=== PATIENT | female | born 1940 | race Caucasian/White ===

== ENCOUNTER 2021-10-03 09:42 | Observation (INO) ==
[2021-10-03] MEDS ORDERED: ONDANSETRON INJ 2 MG/ML 2 ML VIAL IV STA (10:09)
[2021-10-03] MEDS ORDERED: SODIUM CHLORIDE 0.9% 1000ML 1,000 ML IV STA (10:09)
[2021-10-03 10:16] LABS: Basophils # (auto) 0.02 K/uL (0-0.2); Basophils % (auto) 0.1 %; Eosinophils # (auto) 0.11 K/uL (0-0.5); Eosinophils % (auto) 0.8 %; Hematocrit (blood only) 39.6 % (37-47); Hemoglobin 13.1 g/dL (12.0-16.0); Immature Granulocytes # (auto) 0.03 K/uL (0.00-0.02); Immature Granulocytes % (auto) 0.2 %; Lymphocytes # (auto) 1.43 K/uL (1.2-3.4); Lymphocytes % (auto) 10.7 %; Mean Corpuscular Hemoglobin 30.3 pg (25-34); Mean Corpuscular Hgb Conc 33.1 g/dL (32-36); Mean Corpuscular Volume 91.5 fL (80-100); Mean Platelet Volume 9.9 fL (7.4-10.4); Monocytes # (auto) 0.86 K/uL (0.11-0.59); Monocytes % (auto) 6.4 %; Neutrophils # (auto) 10.91 K/uL (1.4-6.5); Neutrophils % (auto) 81.8 %; Platelet Count 258 K/uL (130-400); RDW Coefficient of Variation 12.9 % (11.5-14.5); RDW Standard Deviation 43.4 fL (36.4-46.3); Red Blood Count 4.33 M/uL (4.2-5.4); White Blood Count 13.36 K/uL (4.8-10.8)
[2021-10-03] MEDS: fentaNYL citrate 100 MCG/2 ML VIAL IV PRN ×2 (10:20→15:05)
[2021-10-03 10:23] LABS: Albumin Level 4.1 gm/dl (3.4-5.0); BUN Creatinine Ratio 12.7 (10-20); Calcium 8.9 mg/dl (8.5-10.1); Creatinine Clr Calc Pharmacy 28.5 ml/min; Est GFR (African American) 41.6 ml/min; Est GFR (Non-African American) 35.9 ml/min; Potassium 3.8 mmol/L (3.5-5.1)
--- NOTE | 2021-10-03 10:23 | Emergency Department Note ---
Impression & Plan Large bowel obstruction, Vomiting, Abdominal pain ED Provider Note NAME: DANNY BASS AGE: 80 SEX: F : 1940 ARRIVES VIA: Ambulance INFORMANT: Patient, ED PROVIDER(S): Jaylan Jacobsen DO CHIEF COMPLAINT: Abdominal pain HPI: The patient is a 80-year-old female who presented to the emergency department for an evaluation of upper abdominal pain and vomiting. The patient was recently diagnosed with C. difficile colitis. She was treated with a course of Flagyl. She has not had diarrhea for 5 days but she is also not had a bowel movement. She started noticing upper abdominal pain abdominal fullness and vomiting. She denies having any fever. She has no black or bloody bowel movements. She has been compliant with her usual outpatient medications. She denies having any recent trauma. The patient states her pain is moderate to severe. The patient has not been seen by her primary care physician for the vomiting. She presented to the emergency department via ambulance. ROS: See above HPI for pertinent positives & negatives. A total of 10 systems reviewed and were otherwise negative. PAST MEDICAL HISTORY: See Below PAST SURGICAL HISTORY: See Below FAMILY HISTORY: See Below SOCIAL HISTORY: See Below HOME MEDICATIONS: See Below ALLERGIES: See Below VITALS: See Below PHYSICAL EXAMINATION: GENERAL: The patient is awake and alert. She is very anxious appearing and appears to be uncomfortable. EYES: The conjunctivae are clear. The pupils are round and reactive. EARS, NOSE, MOUTH AND THROAT: The nose is without any evidence of any deformity. Mucous membranes are moist. Tongue is midline. NECK: The neck is nontender and supple. RESPIRATORY: Normal respiratory effort is noted there is no evidence of wheezing rhonchi or rales CARDIOVASCULAR: Regular rate and rhythm noted there no murmurs rubs or gallops normal S1 normal S2. GASTROINTESTINAL: The abdomen is soft and mildly distended. There is diffuse tenderness to palpation specifically in the upper abdomen. There was no guarding. MUSCULOSKELETAL/EXTREMITIES: There is no evidence of gross deformity full range of motion is noted in the hips and shoulders. SKIN: There is no obvious evidence of any rash. There are no petechiae, pallor or cyanosis noted. NEUROLOGIC: Patient is awake alert and oriented x3. MEDICAL DECISION MAKING: The patient is a 80-year-old female who presented to the emergency department for an evaluation of nausea vomiting. The patient was found to have left-sided abdominal pain on palpation. The patient was treated with IV fluids and IV pain medication as well as IV antiemetics. On reevaluation she was mildly improved. Radiographic studies were obtained and appeared to be consistent with a bowel obstruction. I discussed the patient's condition with the on-call [facility] group. They have agreed to evaluate the patient in the emergency department for further management and disposition. Triage Nursing notes reviewed. Prior medical records reviewed Vital Signs: reviewed and remarkable for elevated blood pressure. Differential diagnosis: Etiologies such as appendicitis, diverticulitis, obstruction, inflammatory bowel disease, renal colic, PUD, biliary pathology, pancreatitis, mesenteric ischemia, aortic pathology, infections, genitourinary, UTI, perforated viscus, as well as others were entertained. ER treatment provided: See below Diagnostics interpreted by me: ECG: none Cardiac Monitoring: An order was placed for continuous cardiac monitoring. The monitor shows a rate of 70 bpm with sinus rhythm. Laboratory studies: As stated above and show below. Imaging studies: See below Consultation(s): I discussed this case with Kathrin who is on-call for the [facility] hospitalist group. They will evaluate the patient in the emergency department for further management and disposition. Past Med/Surg History Medical History (Updated 10/03/21 @ 16:31 by Jaylan Jacobsen DO) Bipolar disorder CAD (coronary artery disease) Depression Diet-controlled diabetes mellitus GERD (gastroesophageal reflux disease) HTN (hypertension) Myocardial infarction Post herpetic neuralgia Presence of stent in LAD coronary artery Surgical History (Updated 10/03/21 @ 15:22 by Kathrin Valladares PA-C) History of carpal tunnel release History of lumbar surgery History of rotator cuff surgery History of trigger finger Hx of coronary angioplasty stent to lad in 2018 Family History (Updated 10/03/21 @ 15:22 by Kathrin Valladares PA-C) Denies family history of Colorectal cancer Social History (Updated 10/03/21 @ 15:23 by Kathrin Valladares PA-C) Smoking Status: Never smoker Hx Alcohol Use: No Hx Substance Use: No marital status: Single Current Living Situation: Alone Current Living Situation Comment: Lives out in [place] Feels Safe at Home: Yes Allergies Allergies Allergy/AdvReac Type Severity Reaction Status Date / Time acetaminophen [From Percocet] Allergy Severe Hallucinati Unverified 10/03/21 10:46 ng aspirin [From Percodan] Allergy Severe Hallucinati Unverified 10/03/21 10:46 ng butorphanol [From Stadol] Allergy Severe Hallucinati Unverified 10/03/21 10:46 ng codeine Allergy Severe Vomiting Unverified 10/03/21 10:46 fluorouracil [From Efudex] Allergy Severe eating Unverified 10/03/21 10:46 away skin meperidine [From Demerol] Allergy Severe Hallucinati Unverified 10/03/21 10:46 ng oxycodone [From Percocet] Allergy Severe Hallucinati Unverified 10/03/21 10:46 ng Penicillins Allergy Severe Unknown Unverified 10/03/21 10:46 morphine Allergy Intermediate Vomiting Unverified 10/03/21 10:46 propoxyphene Allergy Mild Nausea Unverified 10/03/21 10:46 [From Darvocet-N] ticagrelor [From Brilinta] Allergy Mild Dizziness Unverified 10/03/21 10:46 lorazepam Allergy Agitated Unverified 10/03/21 10:46 prochlorperazine Allergy Agitated Unverified 10/03/21 10:46 [From Compazine] Sulfa (Sulfonamide Allergy Rash Unverified 10/03/21 10:46 Antibiotics) Home Meds Home Medications Medication Instructions Recorded Confirmed atorvastatin 40 mg tablet 40 mg PO DAILY 09/28/18 10/03/21 bupropion HCl 150 mg tablet,12 hr 150 mg PO BID 09/28/18 10/03/21 sustained-release clopidogrel 75 mg tablet 75 mg PO DAILY 09/28/18 10/03/21 pregabalin 100 mg capsule (Lyrica) 100 mg PO BID 09/28/18 10/03/21 psyllium husk 0.52 gram capsule 0.52 g PO DAILY 09/28/18 10/03/21 (Metamucil) amlodipine 10 mg tablet 10 mg PO DAILY 10/03/21 10/03/21 carvedilol 25 mg tablet 25 mg PO BID 10/03/21 10/03/21 lansoprazole 30 mg capsule,delayed 30 mg PO DAILY 10/03/21 10/03/21 release ondansetron HCl 8 mg tablet 8 mg PO TID PRN 10/03/21 10/03/21 tramadol 50 mg tablet 50 mg PO TID PRN 10/03/21 10/03/21 Results & Data (ED) Vital Signs Vital Signs - 24 hr 10/03/21 09:51 10/03/21 10:14 10/03/21 11:51 Temperature 36.8 C Temperature Source Oral Pulse Rate 78 Pulse Rate [Apical] 76 Respiratory Rate 18 18 Blood Pressure 207/75 H Blood Pressure [Left Arm] 147/71 H Blood Pressure Mean 119 Blood Pressure Mean [Left Arm] 96 Pulse Oximetry 98 98 98 Oxygen Delivery Method Room Air Room Air Room Air Sepsis Recent Fever Within 48 Hours No Sepsis New/Unexplained Change in Mental Status No Sepsis Action Taken by Nursing No Action Required Home Medications Current Medication List: was personally reviewed by me Laboratory Data Attestation: I reviewed the patient's lab results. Result diagrams: 10/03/21 09:51 10/03/21 09:51 Lab Results 10/03/21 10/03/21 Range/Units 09:51 09:51 WBC 13.36 H (4.8-10.8) K/uL RBC 4.33 (4.2-5.4) M/uL Hgb 13.1 (12.0-16.0) g/dL Hct 39.6 (37-47) % MCV 91.5 (80-100) fL MCH 30.3 (25-34) pg MCHC 33.1 (32-36) g/dL RDW Std Deviation 43.4 (36.4-46.3) fL RDW Coeff of Gloria 12.9 (11.5-14.5) % Plt Count 258 (130-400) K/uL MPV 9.9 (7.4-10.4) fL Immature Gran % (Auto) 0.2 % Neut % (Auto) 81.8 % Lymph % (Auto) 10.7 % [place] % (Auto) 6.4 % Eos % (Auto) 0.8 % Baso % (Auto) 0.1 % Neut # (Auto) 10.91 H (1.4-6.5) K/uL Lymph # (Auto) 1.43 (1.2-3.4) K/uL [place] # (Auto) 0.86 H (0.11-0.59) K/uL Eos # (Auto) 0.11 (0-0.5) K/uL Baso # (Auto) 0.02 (0-0.2) K/uL Immature Gran # (Auto) 0.03 H (0.00-0.02) K/uL Sodium 140 (136-145) mmol/L Potassium 3.8 (3.5-5.1) mmol/L Chloride 108 H (98-107) mmol/L Carbon Dioxide 22 (21-32) mmol/L Anion Gap 10.0 (3-11) BUN 18 (7-18) mg/dl Creatinine 1.40 H (0.6-1.2) mg/dl Est Cr Clr Drug Dosing 28.5 ml/min Est GFR ( Amer) 41.6 ml/min Est GFR (Non-Af Amer) 35.9 ml/min BUN/Creatinine Ratio 12.7 (10-20) Glucose 145 H (70-99) mg/dl Calcium 8.9 (8.5-10.1) mg/dl Total Bilirubin 0.4 (0.2-1) mg/dl AST 21 (15-37) U/L ALT 23 (12-78) U/L Alkaline Phosphatase 94 (45-117) U/L Total Protein 8.8 H (6.4-8.2) gm/dl Albumin 4.1 (3.4-5.0) gm/dl Globulin 4.7 H (2.5-4.0) gm/dl Albumin/Globulin Ratio 0.9 (0.9-2) Lipase 85 (73-393) U/L Administered Medications Discontinued Medications Amlodipine Besylate (Amlodipine Besylate 5 Mg Tab) 10 mg PO NOW ONE Stop: 10/03/21 15:30 Last Admin: 10/03/21 15:56 Dose: 10 mg Documented by: [id number] Fentanyl Citrate (Fentanyl Citrate 100 Mcg/2 Ml Vial) 50 mcg IV Q15M PRN PRN Reason: Pain Stop: 10/17/21 10:08 Last Admin: 10/03/21 15:05 Dose: 50 mcg Documented by: [id number] Admin: 10/03/21 10:20 Dose: 50 mcg Documented by: [id number] Sodium Chloride (Nss 1000ml) 1,000 mls @ 999 mls/hr IV .Q1H1M STA Stop: 10/03/21 11:09 Last Infusion: 10/03/21 11:27 Dose: 0 mls/hr Documented by: [id number] Admin: 10/03/21 10:20 Dose: 999 mls/hr Documented by: [id number] Acetaminophen (Ofirmev) 1,000 mg in 100 mls @ 400 mls/hr IV NOW STA Stop: 10/03/21 13:40 Last Infusion: 10/03/21 14:04 Dose: 0 mls/hr Documented by: [id number] Admin: 10/03/21 13:41 Dose: 400 mls/hr Documented by: [id number] Ioversol (Optiray 320 100ml) 95 ml IV ONCE ONE Stop: 10/03/21 11:22 Last Admin: 10/03/21 11: Dose: 95 ml Documented by: [id number] Labetalol HCl (Labetalol Hcl Iv 5 Mg/Ml 20ml) 5 mg IV NOW STA Stop: 10/03/21 15:14 Last Admin: 10/03/21 15:56 Dose: 5 mg Documented by: [id number] Cosigned by: [id number] Ondansetron HCl (Ondansetron Inj 2 Mg/Ml 2 Ml Vial) 4 mg IV NOW STA Stop: 10/03/21 10:10 Last Admin: 10/03/21 10:20 Dose: 4 mg Documented by: [id number] Imaging Data Radiologist's Impression: Abdomen/Pelvis CT 10/03/21 10:09 CT SCAN OF THE ABDOMEN AND PELVIS WITHOUT IV CONTRAST CLINICAL HISTORY: Generalized abdominal pain. Vomiting. COMPARISON STUDY: No priors. TECHNIQUE: CT scan of the abdomen and pelvis is performed from the lung bases to the proximal femora. Images are reviewed in the axial, sagittal, and coronal planes. IV contrast was not administered for this examination. A dose lowering t echnique was utilized adhering to the principles of ALARA. CT DOSE: 413.34 mGy.cm FINDINGS: Lung bases: The heart is mildly enlarged and without pericardial effusion. The coronary arteries are densely calcified. The lung bases are clear noting mild bibasilar atelectasis. There is a moderate hiatal hernia. Liver: The unenhanced liver is normal in size, contour, and attenuation. There is minimal central intrahepatic biliary ductal dilatation. There are scattered calcified hepatic granulomas. Gallbladder: Surgically absent noting clips in the gallbladder fossa. Spleen: Normal in size and attenuation. Pancreas: Unremarkable. Adrenal glands: Unremarkable. Kidneys: The unenhanced kidneys demonstrate cortical atrophy and are without hydronephrosis. There are no renal calculi identified. There is no evidence of contour deforming renal mass lesion. 2 subcentimeter cortical hypodensities in the right kidney likely represent cysts but are too small for definitive characterization. Abdominal vasculature: The abdominal aorta is normal in course and caliber noting mild to moderate atherosclerotic calcification. Bowel: Moderate fecal retention is noted in the distal colon. There is focal narrowing with mild mucosal hyperemia is suggested in the proximal descending colon on axial image #229. The upstream colon is distended and fluid-filled measuring up to 6.6 The small bowel loops are normal in caliber. There is mild diverticulosis of the distal colon without CT evidence of acute diverticulitis. The appendix is nonvisualized. Peritoneum: There is no intraperitoneal free air or abdominal ascites. Lymphadenopathy: None. Pelvic viscera: The bladder is normal as visualized. The uterus is surgically absent. No adnexal lesion is seen. Skeletal structures: The skeletal structures are osteopenic. There is lumbosacral spondylosis with postlaminectomy change in the lower lumbar spine. Arthritic change is seen in the hips. No lytic or blastic lesions are seen. IMPRESSION: 1. There is an apparent focal narrowing of the proximal descending colon. The upstream colon is distended and fluid-filled, and the distal colon shows significant fecal retention. The appearance suggests a colonic obstruction, possibly at the level of the proximal descending colon. Although no obvious mass lesion is identified, a mass lesion, focal inflammation, or stricture are differential considerations. This focus of narrowing could also potentially be related to peristalsis, and proximal colonic dilatation could be related to distal fecal impaction. Follow-up with colonoscopy is recommended for further evaluation. 2. The small bowel loops are normal in caliber. 3. Moderate hiatal hernia. 4. Additional findings as above. ACT 112: Negative or not required by law. Electronically signed by: John Grullon M.D. 10/03/2021 11:38 AM Chest X-Ray 10/03/21 10:09 SINGLE VIEW CHEST CLINICAL HISTORY: Generalized abdominal pain. FINDINGS: An AP, portable, upright chest radiograph is compared to study dated 09/28/2018. The cardiomediastinal silhouette is unremarkable noting atherosclerotic calcification of the thoracic aorta. There is mild bibasilar a telectasis. The lungs and pleural spaces are otherwise clear. No pneumothorax is seen. The skeletal structures are osteopenic. The bony thorax is grossly intact. Surgical anchors are noted in the right humeral head. IMPRESSION: No active disease in the chest. ACT 112: Negative or not required by law. Electronically signed by: John Grullon M.D. 10/03/2021 10:42 AM Discharge Plan Visit Data Chief Complaint: GI Assessment Stated Complaint: CONSTIPATION, AB PAIN, NAUSEA/VOMITING ED Provider: Jaylan Jacobsen Discharge Problem: Large bowel obstruction, Vomiting, Abdominal pain Patient Disposition: Being Evaluated by Hospitalist
[2021-10-03 10:25] LABS: Albumin Globulin Ratio 0.9 (0.9-2); Bilirubin,Total 0.4 mg/dl (0.2-1); Globulin 4.7 gm/dl (2.5-4.0); Total Protein 8.8 gm/dl (6.4-8.2)
--- NOTE | 2021-10-03 10:43 | XRay Report ---
SINGLE VIEW CHEST CLINICAL HISTORY: Generalized abdominal pain. FINDINGS: An AP, portable, upright chest radiograph is compared to study dated 09/28/2018. The cardio mediastinal silhouette is unremarkable noting atherosclerotic calcification of the thoracic aorta. Th ere is mild bibasilar atelectasis. The lungs and pleural spaces are otherwise clear. No pneumothorax is seen. The skeletal structures are osteopenic. The bony thorax is grossly intact. Surgical anchors are noted in the right humeral head. IMPRESSION: No active disease in the chest. ACT 112: Negative or not required by law. Electronically signed by: John Grullon M.D. 10/03/2021 10:42 AM
[2021-10-03] MEDS ORDERED: OPTIRAY 320 100ml IV ONE (11:21)
--- NOTE | 2021-10-03 11:40 | CT Scan Report ---
CT SCAN OF THE ABDOMEN AND PELVIS WITHOUT IV CONTRAST CLINICAL HISTORY: Generalized abdominal pain. Vomiting. COMPARISON STUDY: No priors. TECHNIQUE: CT scan of the abdomen and pelvis is performed from the lung bases to the proximal femora. Images are reviewed in the axial, sagittal, and coronal planes. IV contrast was not administered for this examination. A dose lowering technique was utilized adhering to the principles of ALARA. CT DOSE: 413.34 mGy.cm FINDINGS: Lung bases: The heart is mildly enlarged and without pericardial effusion. The coronary arteries are densely calcified. The lung bases are clear noting mild bibasilar atelectasis. There is a moderate hi atal hernia. Liver: The unenhanced liver is normal in size, contour, and attenuation. There is minimal central int rahepatic biliary ductal dilatation. There are scattered calcified hepatic granulomas. Gallbladder: Surgically absent noting clips in the gallbladder fossa. Spleen: Normal in size and attenuation. Pancreas: Unremarkable. Adrenal glands: Unremarkable. Kidneys: The unenhanced kidneys demonstrate cortical atrophy and are without hydronephrosis. There ar e no renal calculi identified. There is no evidence of contour deforming renal mass lesion. 2 subcent imeter cortical hypodensities in the right kidney likely represent cysts but are too small for defini tive characterization. Abdominal vasculature: The abdominal aorta is normal in course and caliber noting mild to moderate at herosclerotic calcification. Bowel: Moderate fecal retention is noted in the distal colon. There is focal narrowing with mild muco feng hyperemia is suggested in the proximal descending colon on axial image #229. The upstream colon i s distended and fluid-filled measuring up to 6.6 The small bowel loops are normal in caliber. There i s mild diverticulosis of the distal colon without CT evidence of acute diverticulitis. The appendix i s nonvisualized. Peritoneum: There is no intraperitoneal free air or abdominal ascites. Lymphadenopathy: None. Pelvic viscera: The bladder is normal as visualized. The uterus is surgically absent. No adnexal lesi on is seen. Skeletal structures: The skeletal structures are osteopenic. There is lumbosacral spondylosis with po stlaminectomy change in the lower lumbar spine. Arthritic change is seen in the hips. No lytic or jacklyn stic lesions are seen. IMPRESSION: 1. There is an apparent focal narrowing of the proximal descending colon. The upstream colon is diste nded and fluid-filled, and the distal colon shows significant fecal retention. The appearance suggest s a colonic obstruction, possibly at the level of the proximal descending colon. Although no obvious mass lesion is identified, a mass lesion, focal inflammation, or stricture are differential considera tions. This focus of narrowing could also potentially be related to peristalsis, and proximal colonic dilatation could be related to distal fecal impaction. Follow-up with colonoscopy is recommended for further evaluation. 2. The small bowel loops are normal in caliber. 3. Moderate hiatal hernia. 4. Additional findings as above. ACT 112: Negative or not required by law. Electronically signed by: John Grullon M.D. 10/03/2021 11:38 AM
[2021-10-03] MEDS ORDERED: ACETAMINOPHEN 1,000 MG/100 ML VIAL IV STA (13:26)
[2021-10-03 13:29] LABS: Appearance Urine Clear (Clear); Bacteria Urine Automated Negative (Negative); Bilirubin Urine Negative (Negative); Blood Urine Negative (Negative); Color Urine Yellow; Epithelial Cell Urine Auto >30 /lpf (0-5); Glucose Urine UA Negative (Negative); Ketones Urine Negative (Negative); Leukocyte Esterase Urine Trace (Negative); Nitrite Urine Negative (Negative); Protein Urine Negative (Negative); RBC Urine Automated 0-4 /hpf (0-4); Specific Gravity Urine 1.035 (1.000-1.030); Urobilinogen Urine Negative (Negative); pH Urine 6.5 (4.5-7.5)
--- NOTE | 2021-10-03 13:48 | Surgery Consultation ---
Date of Consultation October 03, 2021 Assessment & Plan (1) Colon obstruction: This is a 80yF with a PMH of [place], LAD stent 2018 on plavix, GERD, HTN, & recent history of cdiff 1.5 months ago who presents to the [facility] ED on 10/03/21 with complaints of nausea and abdominal pain. Workup in the ER included a CT a/p that revealed "an apparent focal narrowing of the proximal descending colon. The upstream colon is distended and fluid-filled, and the distal colon shows significant fecal retention. The appearance suggests a colonic obstruction, possibly at the level of the proximal descending colon. Although no obvious mass lesion is identified, a mass lesion, focal inflammation, or stricture are differential considerations. This focus of narrowing could also potentially be related to peristalsis, and proximal colonic dilatation could be related to distal fecal impaction." WBC 13. Patient is afebrile and hypertensive in the ER. On examination patient's abdomen is softly distended with discomfort to palpation in the bilateral lower abdomen. Unclear what the etiology of obstruction is from. For now we would recommend starting IV abx for concern of stercoral colitis. Although colonoscopy 1 year ago, would consult GI to see if patient may benefit from a sigmoidoscopy for further evaluation vs administering enema's for stool burden. Okay with clear liquids from our standpoint, back down to NPO for any possible procedures or if patient develops worsening nausea/vomiting. Would hold plavix for now for any possible procedures. We will continue to follow, but no plans for surgical intervention at this time and will await GI's input. History of Present Illness History of Present Illness This is a 80yF with a PMH of [place], LAD stent 2018 on plavix, GERD, HTN who presents to the [facility] ED on 10/03/21 with complaints of nausea and abdominal pain. Patient reports a recent history of cdiff where she was hospitalized for 4 days in early August. She was discharged and completed a course of flagyl at home. She says she never really felt right since then. She thought she was beginning to feel better a week ago last Tuesday, but developed nausea into Tue/Tuesday. She came to visit her daughter starting Tuesday when the nausea returned in addition to new abdominal pain starting yesterday. Her abdominal pain is located mostly in lower abdomen, rating it a 7/10 in severity. She reported to the ER today due to ongoing symptoms. She says she did have two episodes of a very tiny amount of emesis. A CT a/p was performed in the ER that revealed "an apparent focal narrowing of the proximal descending colon. The upstream colon is distended and fluid-filled, and the distal colon shows significant fecal retention. The appearance suggests a colonic obstruction, possibly at the level of the proximal descending colon. Although no obvious mass lesion is identified, a mass lesion, focal inflammation, or stricture are differential considerations. This focus of narrowing could also potentially be related to peristalsis, and proximal colonic dilatation could be related to distal fecal impaction." Outside of the cdiff she reports a baseline of chronic constipation where she takes daily miralax and metamucil. Her last BM was Tuesday and she says it was normal. Her normal bowel habits are usually once daily. She last ate some raw veggies/dip and chocolate pudding pie yesterday. Her belly pain is not related to eating and has no inciting factors. She reports her last colonoscopy was [address] Parekh with [facility] and says it was normal. When asked about if she ever had diverticulitis she says she thinks she may have had an episode of it before years ago, but was not hospitalized for it. No history of inflammatory bowel disease. Past abdominal surgical history includes a hysterectomy and open cholecystectomy. Allergies Allergy/AdvReac Type Severity Reaction Status Date / Time acetaminophen [From Percocet] Allergy Severe Hallucinati Unverified 10/03/21 10:46 ng aspirin [From Percodan] Allergy Severe Hallucinati Unverified 10/03/21 10:46 ng butorphanol [From Stadol] Allergy Severe Hallucinati Unverified 10/03/21 10:46 ng codeine Allergy Severe Vomiting Unverified 10/03/21 10:46 fluorouracil [From Efudex] Allergy Severe eating Unverified 10/03/21 10:46 away skin meperidine [From Demerol] Allergy Severe Hallucinati Unverified 10/03/21 10:46 ng oxycodone [From Percocet] Allergy Severe Hallucinati Unverified 10/03/21 10:46 ng Penicillins Allergy Severe Unknown Unverified 10/03/21 10:46 morphine Allergy Intermediate Vomiting Unverified 10/03/21 10:46 propoxyphene Allergy Mild Nausea Unverified 10/03/21 10:46 [From Darvocet-N] ticagrelor [From Brilinta] Allergy Mild Dizziness Unverified 10/03/21 10:46 lorazepam Allergy Agitated Unverified 10/03/21 10:46 prochlorperazine Allergy Agitated Unverified 10/03/21 10:46 [From Compazine] Sulfa (Sulfonamide Allergy Rash Unverified 10/03/21 10:46 Antibiotics) Home Medications Medication Instructions Recorded Confirmed Type atorvastatin 40 mg tablet 40 mg PO DAILY 09/28/18 10/03/21 History bupropion HCl 150 mg tablet,12 hr 150 mg PO BID 09/28/18 10/03/21 History sustained-release clopidogrel 75 mg tablet 75 mg PO DAILY 09/28/18 10/03/21 History pregabalin 100 mg capsule (Lyrica) 100 mg PO BID 09/28/18 10/03/21 History psyllium husk 0.52 gram capsule 0.52 g PO DAILY 09/28/18 10/03/21 History (Metamucil) amlodipine 10 mg tablet 10 mg PO DAILY 10/03/21 10/03/21 History carvedilol 25 mg tablet 25 mg PO BID 10/03/21 10/03/21 History lansoprazole 30 mg capsule,delayed 30 mg PO DAILY 10/03/21 10/03/21 History release ondansetron HCl 8 mg tablet 8 mg PO TID PRN 10/03/21 10/03/21 History tramadol 50 mg tablet 50 mg PO TID PRN 10/03/21 10/03/21 History Patient History Medical History (Updated 10/04/21 @ 09:57 by Abram Márquez, DO) Bipolar disorder CAD (coronary artery disease) Depression Diet-controlled diabetes mellitus GERD (gastroesophageal reflux disease) HTN (hypertension) Myocardial infarction Post herpetic neuralgia Presence of stent in LAD coronary artery Surgical History (Updated 10/03/21 @ 15:22 by Kathrin Valladares PA-C) History of carpal tunnel release History of lumbar surgery History of rotator cuff surgery History of trigger finger Hx of coronary angioplasty stent to lad in 2018 Family History (Updated 10/03/21 @ 15:22 by Kathrin Valladares PA-C) Denies family history of Colorectal cancer Social History (Updated 10/03/21 @ 15:23 by Kathrin Valladares PA-C) Smoking Status: Never smoker Hx Alcohol Use: No Hx Substance Use: No Preferred Language: Bolivian Communication Ability: Effective Agronomy Supervisor Required: No Beliefs That Will Affect Care: None marital status: Single Current Living Situation: Alone Current Living Situation Comment: [place] Feels Safe at Home: Yes Review of Systems Constitutional: no fever and no chills Respiratory: no dyspnea Cardiovascular: no chest pain Gastrointestinal: + abdominal pain, + bloating, + nausea, + vomiting and + constipation; no blood in stools Musculoskeletal: reports a stabbing pain in back that comes and goes- she believes is shingles Physical Exam Physical Exam: awake/alert Respiratory: normal respiratory effort Gastrointestinal (Abdomen): Inspection/Auscultation: + abdomen distended and + abdominal surgical scar (midline surgical scar and open walter scar) Percussion/Palpation: + abdomen tender (discomfort to palpation in lower abdomen) and abdomen soft; no guarding Musculoskeletal: midline scar on back from prior spine surgery. no obvious rashes seen on skin Results & Data ([facility]) Vital Signs (Past 12 Hours) Vital Signs Temp Pulse Pulse Resp BP BP Pulse Ox 10/03/21 13:00 86 18 175/109 H 97 10/03/21 11:51 76 18 147/71 H 98 10/03/21 10:14 98 10/03/21 09:51 36.8 C 78 18 207/[address] SCAN OF THE ABDOMEN AND PELVIS WITHOUT IV CONTRAST CLINICAL HISTORY: Generalized abdominal pain. Vomiting. COMPARISON STUDY: No priors. TECHNIQUE: CT scan of the abdomen and pelvis is performed from the lung bases to the proximal femora. Images are reviewed in the axial, sagittal, and coronal planes. IV contrast was not administered for this examination. A dose lowering technique was utilized adhering to the principles of ALARA. CT DOSE: 413.34 mGy.cm FINDINGS: Lung bases: The heart is mildly enlarged and without pericardial effusion. The coronary arteries are densely calcified. The lung bases are clear noting mild bibasilar atelectasis. There is a moderate hiatal hernia. Liver: The unenhanced liver is normal in size, contour, and attenuation. There is minimal central intrahepatic biliary ductal dilatation. There are scattered calcified hepatic granulomas. Gallbladder: Surgically absent noting clips in the gallbladder fossa. Spleen: Normal in size and attenuation. Pancreas: Unremarkable. Adrenal glands: Unremarkable. Kidneys: The unenhanced kidneys demonstrate cortical atrophy and are without hydronephrosis. There are no renal calculi identified. There is no evidence of contour deforming renal mass lesion. 2 subcentimeter cortical hypodensities in the right kidney likely represent cysts but are too small for definitive characterization. Abdominal vasculature: The abdominal aorta is normal in course and caliber noting mild to moderate atherosclerotic calcification. Bowel: Moderate fecal retention is noted in the distal colon. There is focal narrowing with mild mucosal hyperemia is suggested in the proximal descending colon on axial image #229. The upstream colon is distended and fluid-filled measuring up to 6.6 The small bowel loops are normal in caliber. There is mild diverticulosis of the distal colon without CT evidence of acute diverticulitis. The appendix is nonvisualized. Peritoneum: There is no intraperitoneal free air or abdominal ascites. Lymphadenopathy: None. Pelvic viscera: The bladder is normal as visualized. The uterus is surgically absent. No adnexal lesion is seen. Skeletal structures: The skeletal structures are osteopenic. There is lumbosacral spondylosis with postlaminectomy change in the lower lumbar spine. Arthritic change is seen in the hips. No lytic or blastic lesions are seen. IMPRESSION: 1. There is an apparent focal narrowing of the proximal descending colon. The upstream colon is distended and fluid-filled, and the distal colon shows significant fecal retention. The appearance suggests a colonic obstruction, possibly at the level of the proximal descending colon. Although no obvious mass lesion is identified, a mass lesion, focal inflammation, or stricture are differential considerations. This focus of narrowing could also potentially be related to peristalsis, and proximal colonic dilatation could be related to distal fecal impaction. Follow-up with colonoscopy is recommended for further evaluation. 2. The small bowel loops are normal in caliber. 3. Moderate hiatal hernia. 4. Additional findings as above. ACT 112: Negative or not required by law. Electronically signed by: John Grullon M.D. 10/03/2021 11:38 AM PG Care Time/CCT Total # of Minutes Spent Total Time Spent with Patient: Total time spent is greater than 50% in coordination of care (as documented) at patient's floor/unit and/or counseling patient: Coding Level of Care Code 68470 Initial Inpt Care Lvl 3 Diagnoses Colon obstruction K56.609
[2021-10-03] MEDS ORDERED: LABETALOL HCL IV 5 MG/ML 20ML IV STA (15:13)
[2021-10-03] MEDS ORDERED: amLODIPine BESYLATE 5 MG TAB PO ONE (15:29)
--- NOTE | 2021-10-03 15:33 | History & Physical Report ---
Date of Service October 03, 2021 Assessment & Plan (1) Colon obstruction: (2) Nausea: (3) CAD (coronary artery disease): (4) HTN (hypertension): (5) Diet-controlled diabetes mellitus: (6) Post herpetic neuralgia: (7) Bipolar disorder: Plan: This is a 80-year-old female who has significant past medical history of CAD with history of angioplasty in 2018, diet-controlled T2DM, chronic postherpetic neuralgia, HTN, depression, GERD, bipolar disorder who presents to ED secondary to nausea and abdominal pain x2 days. CT a/p: here is an apparent focal narrowing of the proximal descending colon. The upstream colon is distended and fluid-filled, and the distal colon shows significant fecal retention. The appearance suggests a colonic obstruction, possibly at the level of the proximal descending colon. Although no obvious mass lesion is identified, a mass lesion, focal inflammation, or stricture are differential considerations. This focus of narrowing could also potentially be related to peristalsis, and proximal colonic dilatation could be related to distal fecal impaction. Follow-up with colonoscopy is recommended for further evaluation. WBC 13k, no signs of sirs/sepsis Colon Obstruction admit to med tele consult surgery - appreciate their recommendations clear liquid diet for now, NPO after midnight in event pt needs procedure consult gastroenterology to determine if they feel flex sig warranted vs enemas IV cipro and oral flagyl due to concern for possible stercoral coliits last c scope - 1 year ago per pt w/o abd finding IVF LR @ 100cc/hr antiemetics oral tramadol, or IV apap for pain - pt with multiple allergies CAD hx of stent 2018 on plavix, statin, coreg hold tomorrow a.m. plavix for now until seen by GI resume as soon as able HTN bp significantly elevated in ED, likely 2/2 to pain, missing meds continue amlodipine and coreg give labetalol 5mg IV x 1 now and amlodipine 10mg x 1 will monitor on tele due to elevated BP Diet controlled T2DM obtain a1c in am accuchecks ac/hs will not place on coverage Post herpetic neuralgia continue lyrica, prn ice Bipolar d/o Depression continue wellbutrin Dispo: med tele, likely to remain admitted 1-2 days FULL CODE PCP: Josh Cali - from out of area, will consult HIM to obtain records Pt was seen and examined in collaboration with Dr. Kc, please see addendum History of Present Illness Chief Complaint: Nausea and abdominal pain x 2 days Primary Care Provider: Josh Cali PA-C This is a 80-year-old female who has significant past medical history of CAD with history of angioplasty in 2018, diet-controlled T2DM, chronic postherpetic neuralgia, HTN, depression, GERD, bipolar disorder who presents to ED secondary to nausea and abdominal pain x2 days. She is from [place], [place] and is in town visiting her daughter for the holiday. Yesterday she complained of being nauseated and unable to eat and drink much. She did have 1 episode of vomiting described as, "spit up." She also complains of intermittent lower abdominal discomfort, waxes and wanes, currently 5 out of 10, nothing makes better or worse, has never had in the past. Her last bowel movement was 4 days ago. Her last colonoscopy was 1 year ago. She reports a colonoscopy unremarkable and no prior history of abnormal colonoscopies. Of significance she does admit to being hospitalized in August out in [place] secondary to abdominal pain and diagnosed with C. difficile colitis. She was treated with Flagyl x22 days. In ED she remained hemodynamically stable although was significantly hypertensive. CT abdomen pelvis was obtained which revealed apparent focal narrowing of the proximal descending colon. The upstream colon is distended and fluid-filled, and the distal colon shows significant fecal retention. The appearance suggest a colonic obstruction, possibly at the level of the proximal descending colon. Although no obvious mass lesions identified, a mass lesion, focal inflammation or stricture differential considerations. Daughter is at bedside. She is extremely concerned due to mother's prior history and wishes patient to have her care out in [place] where, "they are familiar with her." Allergies Allergy/AdvReac Type Severity Reaction Status Date / Time acetaminophen [From Percocet] Allergy Severe Hallucinati Unverified 10/03/21 10:46 ng aspirin [From Percodan] Allergy Severe Hallucinati Unverified 10/03/21 10:46 ng butorphanol [From Stadol] Allergy Severe Hallucinati Unverified 10/03/21 10:46 ng codeine Allergy Severe Vomiting Unverified 10/03/21 10:46 fluorouracil [From Efudex] Allergy Severe eating Unverified 10/03/21 10:46 away skin meperidine [From Demerol] Allergy Severe Hallucinati Unverified 10/03/21 10:46 ng oxycodone [From Percocet] Allergy Severe Hallucinati Unverified 10/03/21 10:46 ng Penicillins Allergy Severe Unknown Unverified 10/03/21 10:46 morphine Allergy Intermediate Vomiting Unverified 10/03/21 10:46 propoxyphene Allergy Mild Nausea Unverified 10/03/21 10:46 [From Darvocet-N] ticagrelor [From Brilinta] Allergy Mild Dizziness Unverified 10/03/21 10:46 lorazepam Allergy Agitated Unverified 10/03/21 10:46 prochlorperazine Allergy Agitated Unverified 10/03/21 10:46 [From Compazine] Sulfa (Sulfonamide Allergy Rash Unverified 10/03/21 10:46 Antibiotics) Home Medications Medication Instructions Recorded Confirmed Type atorvastatin 40 mg tablet 40 mg PO DAILY 09/28/18 10/03/21 History bupropion HCl 150 mg tablet,12 hr 150 mg PO BID 09/28/18 10/03/21 History sustained-release clopidogrel 75 mg tablet 75 mg PO DAILY 09/28/18 10/03/21 History pregabalin 100 mg capsule (Lyrica) 100 mg PO BID 09/28/18 10/03/21 History psyllium husk 0.52 gram capsule 0.52 g PO DAILY 09/28/18 10/03/21 History (Metamucil) amlodipine 10 mg tablet 10 mg PO DAILY 10/03/21 10/03/21 History carvedilol 25 mg tablet 25 mg PO BID 10/03/21 10/03/21 History lansoprazole 30 mg capsule,delayed 30 mg PO DAILY 10/03/21 10/03/21 History release ondansetron HCl 8 mg tablet 8 mg PO TID PRN 10/03/21 10/03/21 History tramadol 50 mg tablet 50 mg PO TID PRN 10/03/21 10/03/21 History Past Med/Surg History Medical History (Updated 10/03/21 @ 16:31 by Jaylan Jacobsen DO) Bipolar disorder CAD (coronary artery disease) Depression Diet-controlled diabetes mellitus GERD (gastroesophageal reflux disease) HTN (hypertension) Myocardial infarction Post herpetic neuralgia Presence of stent in LAD coronary artery Surgical History (Updated 10/03/21 @ 15:22 by Kathrin Valladares PA-C) History of carpal tunnel release History of lumbar surgery History of rotator cuff surgery History of trigger finger Hx of coronary angioplasty stent to lad in 2018 Family History (Updated 10/03/21 @ 15:22 by Kathrin Valladares PA-C) Denies family history of Colorectal cancer Social History (Updated 10/03/21 @ 15:23 by Kathrin Valladares PA-C) Smoking Status: Never smoker Hx Alcohol Use: No Hx Substance Use: No marital status: Single Current Living Situation: Alone Current Living Situation Comment: Lives out in [place], [place] Feels Safe at Home: Yes Review of Systems Review of Systems: All systems reviewed & are unremarkable except as noted in HPI & below Physical Exam Physical Exam: Constitutional: WD/WN, vitals as above, NAD, sitting up in bed, pleasant, conversing easily, appears anxious, moving around frequently in bed, complaining of left-sided lower back pain due to postherpetic neuralgia Head: Normocephalic, Atraumatic Eyes: PERRL, conjunctivae normal, anicteric sclerae ENMT: external ear and nose normal, oropharynx normal dry mucous membranes Neck: trachea midline, no thyromegaly normal visual inspection Respiratory: normal respiratory effort, lungs clear to auscultation, no wheeze, rales, rhonchi. Normal insp/exp effort, no accessory muscle use Cardiovascular: RRR, no murmur, no edema Vessels: no JVD or carotid bruit Chest: normal inspection of chest Abdomen: normal bowel sounds, soft, nontender, no hepatosplenomegaly Musculoskeletal: no cyanosis or clubbing, extremities motor strength 5/5 Skin: no rashes, warm and dry normal turgor Neurologic: PERRL, EOMI, accommodation nl, no face palsy, no dysarthria CN's II-XI intact bilaterally and moves all extremities Psychiatric: A+Ox3, euthymic affect Lymphatic: no cervical or axillary lymphadenopathy : deferred Results & Data Results & Data ([facility]) Vital Signs (Past 12 Hours) Vital Signs Temp Pulse Pulse Resp BP BP Pulse Ox 10/03/21 15:00 78 18 198/89 H 97 10/03/21 13:00 86 18 175/109 H 97 10/03/21 11:51 76 18 147/71 H 98 10/03/21 10:14 98 10/03/21 09:51 36.8 C 78 18 207/75 H 98 Diagnostic Findings Abdomen/Pelvis CT 10/03/21 10:09 CT SCAN OF THE ABDOMEN AND PELVIS WITHOUT IV CONTRAST CLINICAL HISTORY: Generalized abdominal pain. Vomiting. COMPARISON STUDY: No priors. TECHNIQUE: CT scan of the abdomen and pelvis is performed from the lung bases to the proximal femora. Images are reviewed in the axial, sagittal, and coronal planes. IV contrast was not administered for this examination. A dose lowering technique was utilized adhering to the principles of ALARA. CT DOSE: 413.34 mGy.cm FINDINGS: Lung bases: The heart is mildly enlarged and without pericardial effusion. The coronary arteries are densely calcified. The lung bases are clear noting mild bibasilar atelectasis. There is a moderate hiatal hernia. Liver: The unenhanced liver is normal in size, contour, and attenuation. There is minimal central intrahepatic biliary ductal dilatation. There are scattered calcified hepatic granulomas. Gallbladder: Surgically absent noting clips in the gallbladder fossa. Spleen: Normal in size and attenuation. Pancreas: Unremarkable. Adrenal glands: Unremarkable. Kidneys: The unenhanced kidneys demonstrate cortical atrophy and are without hydronephrosis. There are no renal calculi identified. There is no evidence of contour deforming renal mass lesion. 2 subcentimeter cortical hypodensities in the right kidney likely represent cysts but are too small for definitive characterization. Abdominal vasculature: The abdominal aorta is normal in course and caliber noting mild to moderate atherosclerotic calcification. Bowel: Moderate fecal retention is noted in the distal colon. There is focal narrowing with mild mucosal hyperemia is suggested in the proximal descending colon on axial image #229. The upstream colon is distended and fluid-filled measuring up to 6.6 The small bowel loops are normal in caliber. There is mild diverticulosis of the distal colon without CT evidence of acute diverticulitis. The appendix is nonvisualized. Peritoneum: There is no intraperitoneal free air or abdominal ascites. Lymphadenopathy: None. Pelvic viscera: The bladder is normal as visualized. The uterus is surgically absent. No adnexal lesion is seen. Skeletal structures: The skeletal structures are osteopenic. There is lumbosacral spondylosis with postlaminectomy change in the lower lumbar spine. Arthritic change is seen in the hips. No lytic or blastic lesions are seen. IMPRESSION: 1. There is an apparent focal narrowing of the proximal descending colon. The upstream colon is distended and fluid-filled, and the distal colon shows significant fecal retention. The appearance suggests a colonic obstruction, possibly at the level of the proximal descending colon. Although no obvious mass lesion is identified, a mass lesion, focal inflammation, or stricture are differential considerations. This focus of narrowing could also potentially be related to peristalsis, and proximal colonic dilatation could be related to distal fecal impaction. Follow-up with colonoscopy is recommended for further evaluation. 2. The small bowel loops are normal in caliber. 3. Moderate hiatal hernia. 4. Additional findings as above. ACT 112: Negative or not required by law. Electronically signed by: John Grullon M.D. 10/03/2021 11:38 AM Chest X-Ray 10/03/21 10:09 SINGLE VIEW CHEST CLINICAL HISTORY: Generalized abdominal pain. FINDINGS: An AP, portable, upright chest radiograph is compared to study dated 09/28/2018. The cardiomediastinal silhouette is unremarkable noting atherosclerotic calcification of the thoracic aorta. There is mild bibasilar atelectasis. The lungs and pleural spaces are otherwise clear. No pneumothorax is seen. The skeletal structures are osteopenic. The bony thorax is grossly intact. Surgical anchors are noted in the right humeral head. IMPRESSION: No active disease in the chest. ACT 112: Negative or not required by law. Electronically signed by: John Grullon M.D. 10/03/2021 10:42 AM Medications Administered Medication List Fentanyl Citrate (Fentanyl Citrate 100 Mcg/2 Ml Vial) 50 mcg IV Q15M PRN PRN Reason: Pain Stop: 10/17/21 10:08 Last Admin: 10/03/21 15:05 Dose: 50 mcg Documented by: [id number] Admin: 10/03/21 10:20 Dose: 50 mcg Documented by: [id number] Discontinued Medications Sodium Chloride (Nss 1000ml) 1,000 mls @ 999 mls/hr IV .Q1H1M STA Stop: 10/03/21 11:09 Last Infusion: 10/03/21 11: Dose: 0 mls/hr Documented by: [id number] Admin: 10/03/21 10:20 Dose: 999 mls/hr Documented by: [id number] Acetaminophen (Ofirmev) 1,000 mg in 100 mls @ 400 mls/hr IV NOW STA Stop: 10/03/21 13:40 Last Infusion: 10/03/21 14:04 Dose: 0 mls/hr Documented by: [id number] Admin: 10/03/21 13:41 Dose: 400 mls/hr Documented by: [id number] Ioversol (Optiray 320 100ml) 95 ml IV ONCE ONE Stop: 10/03/21 11:22 Last Admin: 10/03/21 11:21 Dose: 95 ml Documented by: [id number] Ondansetron HCl (Ondansetron Inj 2 Mg/Ml 2 Ml Vial) 4 mg IV NOW STA Stop: 10/03/21 10:10 Last Admin: 10/03/21 10:20 Dose: 4 mg Documented by: [id number] COVID-19 Results Results COVID-19 Adm Lab Results: RBC 4.33 M/uL (4.2-5.4) 10/03/21 WBC 13.36 K/uL (4.8-10.8) H 10/03/21 Hgb 13.1 g/dL (12.0-16.0) 10/03/21 Hct 39.6 % (37-47) 10/03/21 Plt Count 258 K/uL (130-400) 10/03/21 Neutrophils (%) (Auto) 81.8 % 10/03/21 Lymphocytes (%) (Auto) 10.7 % 10/03/21 Monocytes # (Auto) 0.86 K/uL (0.11-0.59) H 10/03/21 Eosinophils # (Auto) 0.11 K/uL (0-0.5) 10/03/21 Immature Granulocyte % (Auto) 0.2 % 10/03/21 Neutrophils # (Auto) 10.91 K/uL (1.4-6.5) H 10/03/21 Lymphocytes # (Auto) 1.43 K/uL (1.2-3.4) 10/03/21 Monocytes # (Auto) 0.86 K/uL (0.11-0.59) H 10/03/21 Eosinophils # (Auto) 0.11 K/uL (0-0.5) 10/03/21 Basophils # (Auto) 0.02 K/uL (0-0.2) 10/03/21 Immature Granulocyte # (Auto) 0.03 K/uL (0.00-0.02) H 10/03/21 Na 140 mmol/L (136-145) 10/03/21 K 3.8 mmol/L (3.5-5.1) 10/03/21 Cl 108 mmol/L (98-107) H 10/03/21 CO2 22 mmol/L (21-32) 10/03/21 Anion Gap 10.0 (3-11) 10/03/21 BUN 18 mg/dl (7-18) 10/03/21 Creatinine 1.40 mg/dl (0.6-1.2) H 10/03/21 BUN/Creatinine Ratio 12.7 (10-20) 10/03/21 Glucose Level 145 mg/dl (70-99) H 10/03/21 Ca 8.9 mg/dl (8.5-10.1) 10/03/21 Total Bilirubin 0.4 mg/dl (0.2-1) 10/03/21 AST/SGOT 21 U/L (15-37) 10/03/21 ALT/SGPT 23 U/L (12-78) 10/03/21 Alkaline Phosphatase 94 U/L (45-117) 10/03/21 Total Protein 8.8 gm/dl (6.4-8.2) H 10/03/21 Albumin 4.1 gm/dl (3.4-5.0) 10/03/21 Globulin 4.7 gm/dl (2.5-4.0) H 10/03/21 Albumin/Globulin Ratio 0.9 (0.9-2) 10/03/21 SARS-CoV-2, RNA, NAAT NEGATIVE (NEGATIVE) 10/03/21 Chest X-Ray 10/03/21 Code Status & VTE Plan Code Status FULL CODE VTE Prophylaxis Plan VTE Prophylaxis will be ordered: Yes Supervising Physician Co-Signing Physician Notes Attending addendum: The patient was seen and examined in the emergency room She has been complaining of abdominal discomfort with nausea since beginning of August and she was in the hospital at [place] for about 4 days with this problem. She was not totally free of symptoms since then. She has history of constipation and takes laxatives regularly. She has had colonoscopy about 1 year ago and there was unremarkable as per her. She has been complaining of abdominal discomfort with distention and nausea for the last 2 to 3 days and she has had her last bowel movement on Tuesday last. She was brought in with abdominal distention, nausea but denies any fever and no chills, no shortness of breath or palpitation. She was noted to have colonic obstruction on CAT scan with distal colonic distention with stool. On examination Denies any significant pain during examination but has some abdominal distention and discomfort Blood pressure is minimally elevated otherwise hemodynamically stable Chestclear to auscultate bilaterally HeartS1-S2 Abdomendistended, firm, tender to palpate with decreasing bowel sound Extremitiesno edema CNSalert, awake and oriented x3 Her admission labs, EKG and imaging studies reviewed Has colonic obstruction with other medical condition as mentioned in H&P GI and surgery have been consulted Agree with assessment and plan as outlined above by Kathrin Kc
[2021-10-03] MEDS ORDERED: GLUCOSE 40% GEL 15 GM TUBE PO PRN (16:18)
[2021-10-03] MEDS ORDERED: ACETAMINOPHEN 1,000 MG/100 ML VIAL IV PRN (16:18)
[2021-10-03] MEDS ORDERED: GLUCAGON FOR INJ 1 MG VIAL SQ PRN (16:18)
[2021-10-03] MEDS ORDERED: DEXTROSE 50% 50 ML SYRINGE IV PRN (16:18)
[2021-10-03] MEDS ORDERED: CARBOHYDRATES FOR HYPOGLYCEMIA PO PRN (16:18)
[2021-10-03] MEDS ORDERED: GLUCOSE 10 TABS/TUBE PO PRN (16:18)
[2021-10-03] MEDS ORDERED: CIPROFLOXACIN / D5W 400 MG/200 ML BAG IV SCH (17:00)
[2021-10-03] MEDS: LACTATED RINGER'S 1,000 ML IV SCH (17:14)
[2021-10-03] MEDS: HEPARIN SOD 5,000 UNIT/0.5 ML VIAL SQ SCH ×2 (17:15→20:11)
[2021-10-03] MEDS: PREGABALIN 100 MG CAP PO SCH (20:10)
[2021-10-03] MEDS: traMADol HCL 50 MG TABLET PO PRN (20:10)
[2021-10-03] MEDS: buPROPion SR 150 MG TABCR PO SCH (20:12)
[2021-10-03] MEDS: carvediloL 25 MG TAB PO SCH (20:12)
[2021-10-03] MEDS: metroNIDAZOLE 500 MG TAB PO SCH (20:13)
[2021-10-03] MEDS ORDERED: diphenhydrAMINE Capsule 25 MG CAP PO ONE (20:37)
[2021-10-04] MEDS: LACTATED RINGER'S 1,000 ML IV SCH ×3 (02:43→22:09)
[2021-10-04] MEDS: HEPARIN SOD 5,000 UNIT/0.5 ML VIAL SQ SCH ×3 (07:32→20:00)
[2021-10-04] MEDS: PANTOprazole 40 MG TAB PO SCH (08:16)
[2021-10-04] MEDS: metroNIDAZOLE 500 MG TAB PO SCH ×3 (08:16→19:53)
[2021-10-04] MEDS: buPROPion SR 150 MG TABCR PO SCH ×2 (08:16→19:53)
[2021-10-04] MEDS: carvediloL 25 MG TAB PO SCH ×2 (08:16→19:52)
[2021-10-04] MEDS: ATORVASTATIN 40 MG TAB PO SCH (08:16)
[2021-10-04] MEDS: amLODIPine BESYLATE 5 MG TAB PO SCH (08:17)
[2021-10-04] MEDS: PREGABALIN 100 MG CAP PO SCH ×2 (08:18→19:56)
[2021-10-04 08:30] LABS: Basophils # (auto) 0.02 K/uL (0-0.2); Basophils % (auto) 0.3 %; Eosinophils # (auto) 0.16 K/uL (0-0.5); Eosinophils % (auto) 2.6 %; Hematocrit (blood only) 32.8 % (37-47); Hemoglobin 10.7 g/dL (12.0-16.0); Lymphocytes # (auto) 2.22 K/uL (1.2-3.4); Lymphocytes % (auto) 36.8 %; Mean Corpuscular Hemoglobin 29.9 pg (25-34); Mean Corpuscular Hgb Conc 32.6 g/dL (32-36); Mean Corpuscular Volume 91.6 fL (80-100); Mean Platelet Volume 9.4 fL (7.4-10.4); Monocytes # (auto) 0.58 K/uL (0.11-0.59); Monocytes % (auto) 9.6 %; Neutrophils # (auto) 3.06 K/uL (1.4-6.5); Neutrophils % (auto) 50.7 %; Platelet Count 171 K/uL (130-400); RDW Coefficient of Variation 13.1 % (11.5-14.5); RDW Standard Deviation 43.9 fL (36.4-46.3); Red Blood Count 3.58 M/uL (4.2-5.4); White Blood Count 6.04 K/uL (4.8-10.8)
[2021-10-04 09:02] LABS: Bilirubin,Total 0.4 mg/dl (0.2-1); Calcium 8.6 mg/dl (8.5-10.1); Creatinine Clr Calc Pharmacy 35.6 ml/min; Est GFR (African American) 55.1 ml/min; Est GFR (Non-African American) 47.5 ml/min; Magnesium 1.6 mg/dl (1.8-2.4); Potassium 3.3 mmol/L (3.5-5.1)
--- NOTE | 2021-10-04 09:42 | Gastrointestinal Consultation ---
Date of Consultation October 04, 2021 Assessment & Plan (1) Large bowel obstruction: (2) Abdominal pain: (3) Abnormal CT of the abdomen: Clear liquid diet today Start Miralax bowel prep now NPO after midnight Colonoscopy in AM History of Present Illness Reason for Consultation: Abnormal CT scan with Colonic obstruction Attending Physician: Ralph Kc MD History of Present Illness Cheri Arzate is a 80 yo CF with an extensive PMHx including a recent admission in August for C-diff, who presented to the ER with complaints of nausea and abdominal pain. Upon arrival to the ER, she underwent a CT abd/pelvis which showed an apparent focal narrowing of the descending colon with upstream dilation of the colon and distal colon showing significant fecal retention. There was no obvious mass noted. She states that she did have a colonoscopy one year ago by Dr. Parekh in [place]. She reports that it was unremarkable at that time, though I do not have these records. At the time I saw the patient she states that she is feeling much better, and has much less abdominal discomfort and bloating, however, she denies having a BM since her arrival. She denies any fevers, chills, nausea, vomiting, diarrhea, hematemesis, melena or hematochezia, and denies any further complaints. Allergies Allergy/AdvReac Type Severity Reaction Status Date / Time acetaminophen [From Percocet] Allergy Severe Hallucinati Unverified 10/03/21 10:46 ng aspirin [From Percodan] Allergy Severe Hallucinati Unverified 10/03/21 10:46 ng butorphanol [From Stadol] Allergy Severe Hallucinati Unverified 10/03/21 10:46 ng codeine Allergy Severe Vomiting Unverified 10/03/21 10:46 fluorouracil [From Efudex] Allergy Severe eating Unverified 10/03/21 10:46 away skin meperidine [From Demerol] Allergy Severe Hallucinati Unverified 10/03/21 10:46 ng oxycodone [From Percocet] Allergy Severe Hallucinati Unverified 10/03/21 10:46 ng Penicillins Allergy Severe Unknown Unverified 10/03/21 10:46 morphine Allergy Intermediate Vomiting Unverified 10/03/21 10:46 propoxyphene Allergy Mild Nausea Unverified 10/03/21 10:46 [From Darvocet-N] ticagrelor [From Brilinta] Allergy Mild Dizziness Unverified 10/03/21 10:46 lorazepam Allergy Agitated Unverified 10/03/21 10:46 prochlorperazine Allergy Agitated Unverified 10/03/21 10:46 [From Compazine] Sulfa (Sulfonamide Allergy Rash Unverified 10/03/21 10:46 Antibiotics) Home Medications Medication Instructions Recorded Confirmed Type atorvastatin 40 mg tablet 40 mg PO DAILY 09/28/18 10/03/21 History bupropion HCl 150 mg tablet,12 hr 150 mg PO BID 09/28/18 10/03/21 History sustained-release clopidogrel 75 mg tablet 75 mg PO DAILY 09/28/18 10/03/21 History pregabalin 100 mg capsule (Lyrica) 100 mg PO BID 09/28/18 10/03/21 History psyllium husk 0.52 gram capsule 0.52 g PO DAILY 09/28/18 10/03/21 History (Metamucil) amlodipine 10 mg tablet 10 mg PO DAILY 10/03/21 10/03/21 History carvedilol 25 mg tablet 25 mg PO BID 10/03/21 10/03/21 History lansoprazole 30 mg capsule,delayed 30 mg PO DAILY 10/03/21 10/03/21 History release ondansetron HCl 8 mg tablet 8 mg PO TID PRN 10/03/21 10/03/21 History tramadol 50 mg tablet 50 mg PO TID PRN 10/03/21 10/03/21 History Patient History Medical History (Updated 10/04/21 @ 09:57 by Abram Márquez, DO) Bipolar disorder CAD (coronary artery disease) Depression Diet-controlled diabetes mellitus GERD (gastroesophageal reflux disease) HTN (hypertension) Myocardial infarction Post herpetic neuralgia Presence of stent in LAD coronary artery Surgical History (Updated 10/03/21 @ 15:22 by Kathrin Valladares PA-C) History of carpal tunnel release History of lumbar surgery History of rotator cuff surgery History of trigger finger Hx of coronary angioplasty stent to lad in 2018 Family History (Updated 10/03/21 @ 15:22 by Kathrin Valladares PA-C) Denies family history of Colorectal cancer Social History (Updated 10/03/21 @ 15:23 by Kathrin Valladares PA-C) Smoking Status: Never smoker Hx Alcohol Use: No Hx Substance Use: No Preferred Language: Azeri Communication Ability: Effective 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: No Beliefs That Will Affect Care: None marital status: Single Current Living Situation: Alone Current Living Situation Comment: Lives out in [place], [place] Feels Safe at Home: Yes Review of Systems Constitutional: as per Subjective / HPI Eyes: as per Subjective / HPI Ear, Nose, Mouth, Throat: as per Subjective / HPI Respiratory: as per Subjective / HPI Cardiovascular: as per Subjective / HPI Gastrointestinal: as per Subjective / HPI Musculoskeletal: as per Subjective / HPI Integumentary: as per Subjective / HPI Neurologic: as per Subjective / HPI Psychiatric: as per Subjective / HPI Endocrine: as per Subjective / HPI Hematologic / Lymphatic: as per Subjective / HPI Allergy / Immunological: as per Subjective / HPI Physical Exam Constitutional: WD/WN, vitals as above Eyes: + anicteric sclerae ENMT: external ear and nose normal, oropharynx normal Respiratory: normal respiratory effort, lungs clear to auscultation Cardiovascular: RRR, no murmur, no edema Gastrointestinal (Abdomen): normal bowel sounds, soft, nontender, no hepatosplenomegaly Skin: no rashes, warm and dry Psychiatric: A+Ox3, euthymic affect Results & Data ([facility]) Vital Signs (Past 12 Hours) Vital Signs Temp Pulse Pulse Resp BP Pulse Ox 10/04/21 09:05 57 L 10/04/21 07:51 36.6 C 65 18 173/80 H 93 10/04/21 02:35 56 L 10/04/21 02:09 56 L 10/03/21 23:33 36.5 C 58 L 18 119/56 L 93 PG Care Time/CCT Total # of Minutes Spent Total Time Spent with Patient: Total time spent is greater than 50% in coordination of care (as documented) at patient's floor/unit and/or counseling patient: Coding Level of Care Code 44215 Initial Inpt Care Lvl 3 Diagnoses Large bowel obstruction K56.609 Abdominal pain R10.12 Abdominal location: left upper quadrant Abnormal CT of the abdomen R93.5 (1) Abdominal pain Abdominal location: left upper quadrant Qualified Code(s): R10.12 - Left upper quadrant pain
[2021-10-04] MEDS ORDERED: POLYETHYLENE (MIRALAX) 17 GM PACK PO ONE ×2 (10:25→17:00)
[2021-10-04] MEDS: ONDANSETRON INJ 2 MG/ML 2 ML VIAL IV SCH ×3 (10:42→22:09)
--- NOTE | 2021-10-04 10:52 | Surgery Progress Note ---
Date of Service October 04, 2021 Assessment & Plan (1) Large bowel obstruction: Plan: Interesting history no symptoms consistent with that currently. She is continued to have generalized abdominal discomfort as well as intermittent loose bowel movement/constipation. We do not have her records but according to her she had a colonoscopy about a year or so ago and was told it was normal. CT scan currently shows a left upper quadrant colonic partial obstruction/s tricture. GI on board and is planning colonoscopy tomorrow. If it appears infectious antibiotics will hopefully improve things. If there appears to be an ischemic stricture we may need to discuss surgical intervention. This is the likely source of her symptoms. (2) Abdominal pain: Admission and Anticipated Discharge Date Admission Date: October 03, 2021 Subjective Patient seen. No acute changes. Symptoms perhaps slightly improved. Physical Exam Constitutional: WD/WN, vitals as above no acute distress and not ill appearing Eyes: PERRL, conjunctivae normal, anicteric sclerae EOM intact bilaterally ENMT: external ear and nose normal, oropharynx normal Ears: no hearing impairment Neck: trachea midline, no thyromegaly Respiratory: normal respiratory effort; no respiratory distress and does not use accessory muscles Cardiovascular: Rate/Rhythm: regular rate and regular rhythm Gastrointestinal (Abdomen): Soft. Mild to moderate distention. Minimal tenderness. No palpable abnormalities. Skin: no rashes, warm and dry Psychiatric: Orientation: alert, oriented x 3 and cooperative Results & Data ([facility]) Vital Signs (Past 12 Hours) Vital Signs Temp Pulse Pulse Resp BP Pulse Ox 10/04/21 09:05 57 L 10/04/21 07:51 36.6 C 65 18 173/80 H 93 10/04/21 02:35 56 L 10/04/21 02:09 56 L 10/03/21 23:33 36.5 C 58 L 18 119/56 L 93 PG Care Time/CCT Total # of Minutes Spent Total Time Spent with Patient: Total time spent is greater than 50% in coordination of care (as documented) at patient's floor/unit and/or counseling patient: Coding Level of Care Code 40919 Subseq Hosp Care Lvl 3 Diagnoses Large bowel obstruction K56.609 Abdominal pain R10.12 Abdominal location: left upper quadrant (1) Abdominal pain Abdominal location: left upper quadrant Qualified Code(s): R10.12 - Left upper quadrant pain
[2021-10-04] MEDS: CIPROFLOXACIN / D5W 400 MG/200 ML BAG IV SCH (14:17)
--- NOTE | 2021-10-04 15:22 | Hospitalist Progress Note ---
Date of Service October 04, 2021 Assessment & Plan (1) Colon obstruction: (2) Nausea: (3) CAD (coronary artery disease): (4) HTN (hypertension): (5) Diet-controlled diabetes mellitus: (6) Post herpetic neuralgia: (7) Bipolar disorder: Plan: This is a 80-year-old female who has significant past medical history of CAD with history of angioplasty in 2018, diet-controlled T2DM, chronic postherpetic neuralgia, HTN, depression, GERD, bipolar disorder who presents to ED secondary to nausea and abdominal pain x2 days. CT a/p: here is an apparent focal narrowing of the proximal descending colon. The upstream colon is distended and fluid-filled, and the distal colon shows significant fecal retention. The appearance suggests a colonic obstruction, possibly at the level of the proximal descending colon. Although no obvious mass lesion is identified, a mass lesion, focal inflammation, or stricture are differential considerations. This focus of narrowing could also potentially be related to peristalsis, and proximal colonic dilatation could be related to distal fecal impaction. Follow-up with colonoscopy is recommended for further evaluation. WBC 13k, no signs of sirs/sepsis Colon Obstruction consult surgery - appreciate their recommendations clear liquid diet for now, NPO after midnight in event pt needs procedure consult gastroenterology to determine if they feel flex sig warranted vs enemas IV cipro and oral flagyl due to concern for possible stercoral coliits last c scope - 1 year ago per pt w/o abd finding IVF LR @ 100cc/hr Appreciate surgery input and recommendation Appreciate GI input and recommendation Has been going through preparation for possible colonoscopy in the morning CAD hx of stent 2018 on plavix, statin, coreg hold tomorrow a.m. plavix for now until seen by GI resume as soon as able-after colonoscopy HTN bp significantly elevated in ED, likely 2/2 to pain, missing meds continue amlodipine and coreg give labetalol 5mg IV x 1 now and amlodipine 10mg x 1 will monitor on tele due to elevated BP Remains a stable Diet controlled T2DM obtain a1c in am accuchecks ac/hs will not place on coverage Post herpetic neuralgia continue lyrica, prn ice Bipolar d/o Depression continue wellbutrin Dispo: med tele, likely to remain admitted 1-2 days FULL CODE PCP: Josh Cali - from out of area, will consult HIM to obtain records Admission and Anticipated Discharge Date Admission Date: October 03, 2021 Subjective 10/04/2021 The patient was seen and examined in medical telemetry unit She complains to have abdominal discomfort with nausea and vomiting Feels a little bit better compared with yesterday Review of Systems Review of Systems: All systems reviewed and are unremarkable except as noted below Gastrointestinal: Minimal abdominal distention and discomfort Physical Exam Physical Exam: Lying in bed with acute distress secondary to nausea Constitutional: well developed, well nourished, + ill appearing and + obese Eyes: PERRL, conjunctivae normal, anicteric sclerae ENMT: external ear and nose normal, oropharynx normal Neck: trachea midline, no thyromegaly Respiratory: no respiratory distress Auscultation: lungs clear to auscultation bilaterally Cardiovascular: Rate/Rhythm: regular rate, regular rhythm and + bradycardic Heart Sounds: normal S1 and normal S2; no murmur Extremities: + edema (Trace edema bilaterally) Gastrointestinal (Abdomen): Inspection/Auscultation: normal bowel sounds; abdomen not distended Percussion/Palpation: + abdomen tender (Left lower quadrant without rebound) and abdomen soft Musculoskeletal: No acute arthritis in any joint Neurologic: Alert, awake and oriented x3 Results & Data Results & Data ([facility]) Vital Signs (Past 12 Hours) Vital Signs Temp Pulse Pulse Resp BP Pulse Ox 10/04/21 14:52 58 L 10/04/21 11:20 36.8 C 54 L 18 134/58 L 94 10/04/21 09:05 57 L 10/04/21 07:51 36.6 C 65 18 173/80 H 93 Laboratory Results Short CBC 10/04/21 Range/Units 08:00 WBC 6.04 (4.8-10.8) K/uL Hgb 10.7 L (12.0-16.0) g/dL Hct 32.8 L (37-47) % Plt Count 171 (130-400) K/uL BMP 10/04/21 08:00 Sodium 143 Potassium 3.3 L Chloride 111 H Carbon Dioxide 24 BUN 11 Creatinine 1.11 Glucose 81 Calcium 8.6 Liver Function 10/04/21 Range/Units 08:00 Total Bilirubin 0.4 (0.2-1) mg/dl AST 16 (15-37) U/L ALT 18 (12-78) U/L Alkaline Phosphatase 68 (45-117) U/L Albumin 3.0 L (3.4-5.0) gm/dl Medications Administered Current Inpatient Medications Amlodipine Besylate (Amlodipine Besylate 5 Mg Tab) 10 mg PO DAILY RONALD Stop: 11/03/21 08:59 Last Admin: 10/04/21 08:17 Dose: 10 mg Documented by: Atorvastatin Calcium (Atorvastatin 40 Mg Tab) 40 mg PO DAILY RONALD Stop: 11/03/21 08:59 Last Admin: 10/04/21 08:16 Dose: 40 mg Documented by: Bupropion HCl (Bupropion Sr 150 Mg Tabcr) 150 mg PO BID RONALD Stop: 11/02/21 20:59 Last Admin: 10/04/21 08:16 Dose: 150 mg Documented by: Carvedilol (Carvedilol 25 Mg Tab) 25 mg PO BID RONALD Stop: 11/02/21 20:59 Last Admin: 10/04/21 08:16 Dose: 25 mg Documented by: Dextrose (Dextrose 50% 50 Ml Syringe) 25 - 50 ml IV UD PRN; Protocol PRN Reason: Hypoglycemia Protocol Stop: 11/02/21 16:17 Glucagon (Glucagon For Inj 1 Mg Vial) 1 mg SQ UD PRN; Protocol PRN Reason: Hypoglycemia Protocol Stop: 11/02/21 16:17 Glucose (Glucose 10 Tabs/Tube) 4 - 8 tabs PO UD PRN; Protocol PRN Reason: Hypoglycemia Protocol Stop: 11/02/21 16:17 Glucose (Glucose 40% Gel 15 Gm Tube) 15 - 30 gm PO UD PRN; Protocol PRN Reason: Hypoglycemia Protocol Stop: 11/02/21 16:17 Heparin Sodium (Porcine) (Heparin Sod 5,000 Unit/0.5 Ml Vial) 5,000 units SQ Q8 RONALD Stop: 11/02/21 16:17 Last Admin: 10/04/21 12:11 Dose: 5,000 units Documented by: Lactated Ringer's (Lr) 1,000 mls @ 100 mls/hr IV .Q10H RONALD Stop: 11/02/21 16:17 Last Admin: 10/04/21 12:11 Dose: 100 mls/hr Documented by: Acetaminophen (Ofirmev) 1,000 mg in 100 mls @ 400 mls/hr IV Q8H PRN PRN Reason: moderate pain Stop: 10/06/21 16:17 Ciprofloxacin (Cipro / D5w) 400 mg in 200 mls @ 100 mls/hr IV Q12H RONALD; Protocol Stop: 10/13/21 16:59 Last Admin: 10/04/21 14:17 Dose: 100 mls/hr Documented by: Metronidazole (Metronidazole 500 Mg Tab) 500 mg PO TID RONALD Stop: 10/13/21 20:59 Last Admin: 10/04/21 12:11 Dose: 500 mg Documented by: Miscellaneous (Carbohydrates For Hypoglycemia ) 15 - 30 gm PO UD PRN PRN Reason: Hypoglycemia Protocol Stop: 11/02/21 16:17 Ondansetron HCl (Ondansetron Inj 2 Mg/Ml 2 Ml Vial) 4 mg IV Q6H RONALD Stop: 11/03/21 10:44 Last Admin: 10/04/21 10:42 Dose: 4 mg Documented by: Pantoprazole Sodium (Pantoprazole 40 Mg Tab) 40 mg PO DAILY RONALD; Protocol Stop: 11/03/21 08:59 Last Admin: 10/04/21 08:16 Dose: 40 mg Documented by: Polyethylene Glycol (Polyethylene (Miralax) 17 Gm Pack) 68 gm PO ONCE ONE Stop: 10/04/21 17:01 Pregabalin (Pregabalin 100 Mg Cap) 100 mg PO BID RONALD Stop: 11/02/21 20:59 Last Admin: 10/04/21 08:18 Dose: 100 mg Documented by: Tramadol HCl (Tramadol Hcl 50 Mg Tablet) 50 mg PO TID PRN PRN Reason: Pain Stop: 11/02/21 16:17 Last Admin: 10/03/21 20:10 Dose: 50 mg Documented by:
[2021-10-05] MEDS: CIPROFLOXACIN / D5W 400 MG/200 ML BAG IV SCH ×2 (02:25→15:03)
[2021-10-05] MEDS: ONDANSETRON INJ 2 MG/ML 2 ML VIAL IV SCH ×3 (04:50→16:41)
[2021-10-05] MEDS: HEPARIN SOD 5,000 UNIT/0.5 ML VIAL SQ SCH ×2 (06:03→15:02)
[2021-10-05 07:39] LABS: Estimated Average Glucose 137 mg/dl; Hemoglobin A1C 6.4 % (4.5-5.6)
[2021-10-05] MEDS: LACTATED RINGER'S 1,000 ML IV SCH (08:12)
[2021-10-05] MEDS: amLODIPine BESYLATE 5 MG TAB PO SCH (08:13)
[2021-10-05] MEDS: ATORVASTATIN 40 MG TAB PO SCH (08:13)
[2021-10-05] MEDS: PANTOprazole 40 MG TAB PO SCH (08:13)
[2021-10-05] MEDS: metroNIDAZOLE 500 MG TAB PO SCH ×3 (08:13→18:36)
[2021-10-05] MEDS: PREGABALIN 100 MG CAP PO SCH (08:14)
[2021-10-05] MEDS: buPROPion SR 150 MG TABCR PO SCH (08:14)
[2021-10-05] MEDS: carvediloL 25 MG TAB PO SCH (08:14)
--- NOTE | 2021-10-05 09:35 | History & Physical Bridge Note ---
Date of Service October 05, 2021 History & Physical Bridge Note I have examined the patient, reviewed the History & Physical and in the interval since the performance of the History & Physical I have noted the following changes of clinical significance: Patient notes improvement of her abdominal pain since moving her bowels throughout the night for the bowel prep. She denies rectal bleeding. She is feeling much better today. She had a sip of water this AM to take her pills with, but has otherwise been NPO since prior to midnight. Proceed with colonoscopy today. Supervising Physician Co-Signing Physician Notes Agree with ELVIS Krause as above Abd: Soft, NT, ND, +BS Proceed with colonoscopy today
--- NOTE | 2021-10-05 10:25 | Surgery Progress Note ---
Date of Service October 05, 2021 Assessment & Plan (1) Large bowel obstruction: Plan: no acute surgical findings await endoscopy findings today as above. spoke with Dr. Márquez...had a slightly narrowed 10 cm segment however no mass and no mucosal abnormality. was able to get scope through rather easily. no urgent surgical intervention indicated. would advance diet and if does ok she can be d/c'd and follow up with her physcians as home ( anne [facility]) Admission and Anticipated Discharge Date Admission Date: October 03, 2021 Subjective had miralax prep, had multiple loose BMS, feels better Physical Exam Gastrointestinal (Abdomen): Inspection/Auscultation: + abdomen distended (less) Percussion/Palpation: abdomen soft Results & Data ([facility]) Vital Signs (Past 12 Hours) Vital Signs Temp Pulse Pulse Resp BP Pulse Ox 10/05/21 07:00 36.6 C 61 18 144/71 H 91 10/05/21 02:40 36.7 C 58 L 18 144/69 H 95 10/04/21 23:35 61 10/04/21 23:19 36.8 C 62 18 135/71 92
--- NOTE | 2021-10-05 12:50 | Anesthesiology Consultation ---
Date of Service October 05, 2021 Assessment & Plan Chart Review Chart Review: Acceptable Risk for Surgery and Patient NOT seen in Pre Admission Testing Consults Requested none History Surgery Operation Date: 10/05/21 16:15 Proposed Procedures p Colonoscopy Dr. Willi Márquez, DO Height/Weight Height: 5 ft Weight: 67.3 kg Allergies Allergy/AdvReac Type Severity Reaction Status Date / Time acetaminophen [From Percocet] Allergy Severe Hallucinati Unverified 10/03/21 10:46 ng aspirin [From Percodan] Allergy Severe Hallucinati Unverified 10/03/21 10:46 ng butorphanol [From Stadol] Allergy Severe Hallucinati Unverified 10/03/21 10:46 ng codeine Allergy Severe Vomiting Unverified 10/03/21 10:46 fluorouracil [From Efudex] Allergy Severe eating Unverified 10/03/21 10:46 away skin meperidine [From Demerol] Allergy Severe Hallucinati Unverified 10/03/21 10:46 ng oxycodone [From Percocet] Allergy Severe Hallucinati Unverified 10/03/21 10:46 ng Penicillins Allergy Severe Unknown Unverified 10/03/21 10:46 morphine Allergy Intermediate Vomiting Unverified 10/03/21 10:46 propoxyphene Allergy Mild Nausea Unverified 10/03/21 10:46 [From Darvocet-N] ticagrelor [From Brilinta] Allergy Mild Dizziness Unverified 10/03/21 10:46 lorazepam Allergy Agitated Unverified 10/03/21 10:46 prochlorperazine Allergy Agitated Unverified 10/03/21 10:46 [From Compazine] Sulfa (Sulfonamide Allergy Rash Unverified 10/03/21 10:46 Antibiotics) Medications Home Medications Medication Instructions Recorded Confirmed Last Taken atorvastatin 40 mg tablet 40 mg PO DAILY 09/28/18 10/03/21 Unknown bupropion HCl 150 mg tablet,12 hr 150 mg PO BID 09/28/18 10/03/21 Unknown sustained-release clopidogrel 75 mg tablet 75 mg PO DAILY 09/28/18 10/03/21 Unknown pregabalin 100 mg capsule (Lyrica) 100 mg PO BID 09/28/18 10/03/21 Unknown psyllium husk 0.52 gram capsule 0.52 g PO DAILY 09/28/18 10/03/21 Unknown (Metamucil) amlodipine 10 mg tablet 10 mg PO DAILY 10/03/21 10/03/21 Unknown carvedilol 25 mg tablet 25 mg PO BID 10/03/21 10/03/21 Unknown lansoprazole 30 mg capsule,delayed 30 mg PO DAILY 10/03/21 10/03/21 Unknown release ondansetron HCl 8 mg tablet 8 mg PO TID PRN 10/03/21 10/03/21 Unknown tramadol 50 mg tablet 50 mg PO TID PRN 10/03/21 10/03/21 Unknown Active Medications Generic Name Dose Route Start Last Admin Trade Name Freq PRN Reason Stop Dose Admin Amlodipine Besylate 10 mg 10/04/21 09:00 10/05/21 08:13 Amlodipine Besylate 5 Mg Tab PO 11/03/21 08:59 10 mg DAILY RONALD Administration Atorvastatin Calcium 40 mg 10/04/21 09:00 10/05/21 08:13 Atorvastatin 40 Mg Tab PO 11/03/21 08:59 40 mg DAILY RONALD Administration Bupropion HCl 150 mg 10/03/21 21:00 10/05/21 08:14 Bupropion Sr 150 Mg Tabcr PO 11/02/21 20:59 150 mg BID RONALD Administration Carvedilol 25 mg 10/03/21 21:00 10/05/21 08:14 Carvedilol 25 Mg Tab PO 11/02/21 20:59 25 mg BID RONALD Administration Heparin Sodium (Porcine) 5,000 units 10/03/21 16:18 10/05/21 06:03 Heparin Sod 5,000 Unit/0.5 Ml Vial SQ 11/02/21 16:17 5,000 units Q8 RONALD Administration Lactated Ringer's 1,000 mls @ 100 mls/hr 10/03/21 16:18 10/05/21 08:12 Lr IV 11/02/21 16:17 100 mls/hr .Q10H RONALD Administration Ciprofloxacin 400 mg in 200 mls @ 100 mls/hr 10/04/21 14:00 10/05/21 04:30 Cipro / D5w IV 10/13/21 16:59 Infused Q12H RONALD Infusion Protocol Metronidazole 500 mg 10/03/21 21:00 10/05/21 08:13 Metronidazole 500 Mg Tab PO 10/13/21 20:59 500 mg TID RONALD Administration Ondansetron HCl 4 mg 10/04/21 10:45 10/05/21 10:51 Ondansetron Inj 2 Mg/Ml 2 Ml Vial IV 11/03/21 10:44 4 mg Q6H RONALD Administration Pantoprazole Sodium 40 mg 10/04/21 09:00 10/05/21 08:13 Pantoprazole 40 Mg Tab PO 11/03/21 08:59 40 mg DAILY RONALD Administration Protocol Pregabalin 100 mg 10/03/21 21:00 10/05/21 08:14 Pregabalin 100 Mg Cap PO 11/02/21 20:59 100 mg BID RONALD Administration Tramadol HCl 50 mg 10/03/21 16:18 10/03/21 20:10 Tramadol Hcl 50 Mg Tablet PO 11/02/21 16:17 50 mg TID PRN Administration Pain NPO Date Last Intake of Fluids: 10/05/21 Time Last Intake of Fluids: 07:30 Date Last Intake of Solids: 10/03/21 Time Last Intake of Solids: 18:00 Past Medical History Medical History Bipolar disorder CAD (coronary artery disease) Depression Diet-controlled diabetes mellitus GERD (gastroesophageal reflux disease) HTN (hypertension) Myocardial infarction Post herpetic neuralgia Presence of stent in [place] coronary artery Past Family History Family History Denies family history of Colorectal cancer Past Surgical History Surgical History History of carpal tunnel release History of lumbar surgery History of rotator cuff surgery History of trigger finger Hx of coronary angioplasty stent to lad in 2018 Social History Smoking Status: Never smoker Hx Alcohol Use: No Hx Substance Use: No Physical Exam Vital Signs Last Vital Signs Temp 36.3 C L 10/05/21 12:24 Pulse 55 L 10/05/21 12:24 Resp 20 10/05/21 12:24 BP 143/59 H 10/05/21 12:24 Pulse Ox 97 10/05/21 12:24 Testing Laboratory Results 10/04/21 08:00 10/04/21 08:00 Hemoglobin A1c 6.4 % (4.5-5.6) H 10/04/21 08:00 Urine Color Yellow 10/03/21 13:15 Urine Appearance Clear (Clear) 10/03/21 13:15 Urine pH 6.5 (4.5-7.5) 10/03/21 13:15 Ur Specific [place] 1.035 (1.000-1.030) H 10/03/21 13:15 Urine Protein Negative (Negative) 10/03/21 13:15 Urine Glucose (UA) Negative (Negative) 10/03/21 13:15 Urine Ketones Negative (Negative) 10/03/21 13:15 Urine Nitrite Negative (Negative) 10/03/21 13:15 Ur Leukocyte Esterase Trace (Negative) H 10/03/21 13:15 Urine WBC (Auto) 1-5 /hpf (0-5) 10/03/21 13:15 Urine RBC (Auto) 0-4 /hpf (0-4) 10/03/21 13:15 U Hyaline Cast (Auto) 1-5 /lpf (0-5) 10/03/21 13:15 U Epithel Cells (Auto) >30 /lpf (0-5) H 10/03/21 13:15 Urine Bacteria (Auto) Negative (Negative) 10/03/21 13:15 10/05/21 10/05/21 11:24 07:27 POC Glucose 91 89
[2021-10-05] MEDS ORDERED: PROPOFOL IV EMULSION 10 MG/ML 20 ML VIAL IV ONE (13:26)
[2021-10-05] MEDS ORDERED: LIDOCAINE 2% 2 ML VIAL/AMP(20MG/ML) INFIL ONE (13:26)
--- NOTE | 2021-10-05 13:26 | XRay Report ---
XR chest 1V not portable CLINICAL HISTORY: new onset cough -patient had an endograft procedure and developed a cough. Evaluat e for possible Aspiration pneumonia. COMPARISON STUDY: 10/03/2021 TECHNIQUE: 1 view of the chest FINDINGS: Single frontal view of the chest demonstrates the cardiomediastinal silhouette to be within normal li mits. There is again asymmetric elevation right hemidiaphragm with crowding of bronchovascular markin gs at the right lung base. The lungs are clear of alveolar opacities. There is no evidence for pleura l effusion. There is no evidence for vascular congestion. There is no acute osseous pathology. IMPRESSION: No acute cardiopulmonary disease. No evidence for interval aspiration pneumonitis. ACT 112: Negative or not required by law. Electronically signed by: René Kendall M.D. 10/05/2021 1:25 PM
--- NOTE | 2021-10-05 14:04 | GI REPORT ---
Patient Name: Cheri Arzate Procedure Date: 10/05/2021 1:28 PM Date of : 1940 Admit Type: Inpatient Age: 80 Gender: Female Attending MD: Abram Márquez DO Procedure: Colonoscopy Providers: Abram Márquez DO Referring MD: Ralph Kc Indications: Abnormal CT of the GI tract Medicines: Monitored Anesthesia Care Complications: No immediate complications. Estimated Blood Loss: Estimated blood loss: none. Procedure: Pre-Anesthesia Assessment: - Prior to the procedure, a History and Physical was performed, and patient medications and allergies were reviewed. The patient's tolerance of previous anesthesia was also reviewed. The risks and benefits of the procedure and the sedation options and risks were discussed with the patient. All questions were answered, and informed consent was obtained. Prior Anticoagulants: The patient has taken Plavix (clopidogrel), last dose was 2 days prior to procedure. ASA Grade Assessment: III - A patient with severe systemic disease. After reviewing the risks and benefits, the patient was deemed in satisfactory condition to undergo the procedure. After I obtained informed consent, the scope was passed under direct vision. Throughout the procedure, the patient's blood pressure, pulse, and oxygen saturations were monitored continuously. The Colonoscope was introduced through the anus and advanced to the terminal ileum. The colonoscopy was performed without difficulty. The patient tolerated the procedure well. The quality of the bowel preparation was fair. The terminal ileum, the ileocecal valve and the appendiceal orifice were photographed. Findings: The perianal and digital rectal examinations were normal. Many small and large-mouthed diverticula were found in the sigmoid colon. There was narrowing of the colon in association with the diverticular opening. Non-bleeding internal hemorrhoids were found during retroflexion. The hemorrhoids were small. Impression: - Preparation of the colon was fair. - Moderate diverticulosis in the sigmoid colon. There was narrowing of the colon in association with the diverticular opening. - Non-bleeding internal hemorrhoids. - No specimens collected. Recommendation: - Resume previous diet. - Continue present medications. - No repeat colonoscopy due to age and the absence of advanced adenomas. - Return to primary care physician as previously scheduled. Abram Márquez DO 10/05/2021 2:03:25 PM This report has been signed electronically. Note Initiated On: 10/05/2021 1:28 PM Number of Addenda: 0 I attest to the content of the Intraoperative Record and orders documented therein, exceptions below {[id number]}
--- NOTE | 2021-10-05 14:31 | Anesthesiology Progress Note ---
Date of Service October 05, 2021 Anesthesia Post Procedure Vital Signs Vital Signs: Temp Pulse Pulse Pulse Resp BP Pulse Ox 10/05/21 14:21 55 L 16 111/50 L 93 10/05/21 14:01 58 L 16 102/48 L 93 10/05/21 12:24 36.3 C L 55 L 20 143/59 H 97 10/05/21 11:07 36.6 C 53 L 16 145/70 H 94 10/05/21 07:00 36.6 C 61 18 144/71 H 91 10/05/21 02:40 36.7 C 58 L 18 144/69 H 95 10/04/21 23:35 61 10/04/21 23:19 36.8 C 62 18 135/71 92 10/04/21 19:24 36.8 C 55 L 20 121/62 92 10/04/21 15:36 36.9 C 53 L 18 137/80 92 10/04/21 14:52 58 L Transfer of Care Handoff Completed per policy Notes Mental Status: alert / awake / arousable and participated in evaluation Nausea / Vomiting: adequately controlled Pain: adequately controlled Airway Patency, RR, SpO2: stable & adequate BP & HR: stable & adequate Hydration State: stable & adequate Anesthetic Complications: no major complications apparent and Pt Satisfied with anesthetic care
--- NOTE | 2021-10-05 16:03 | Hospitalist Progress Note ---
Date of Service October 05, 2021 Assessment & Plan (1) Colon obstruction: (2) Nausea: (3) CAD (coronary artery disease): (4) HTN (hypertension): (5) Diet-controlled diabetes mellitus: (6) Post herpetic neuralgia: (7) Bipolar disorder: Plan: This is a 80-year-old female who has significant past medical history of CAD with history of angioplasty in 2018, diet-controlled T2DM, chronic postherpetic neuralgia, HTN, depression, GERD, bipolar disorder who presents to ED secondary to nausea and abdominal pain x2 days. CT a/p: here is an apparent focal narrowing of the proximal descending colon. The upstream colon is distended and fluid-filled, and the distal colon shows significant fecal retention. The appearance suggests a colonic obstruction, possibly at the level of the proximal descending colon. Although no obvious mass lesion is identified, a mass lesion, focal inflammation, or stricture are differential considerations. This focus of narrowing could also potentially be related to peristalsis, and proximal colonic dilatation could be related to distal fecal impaction. Follow-up with colonoscopy is recommended for further evaluation. WBC 13k, no signs of sirs/sepsis Colon Obstruction consult surgery - appreciate their recommendations clear liquid diet for now, NPO after midnight in event pt needs procedure consult gastroenterology to determine if they feel flex sig warranted vs enemas IV cipro and oral flagyl due to concern for possible stercoral coliits last c scope - 1 year ago per pt w/o abd finding IVF LR @ 100cc/hr Appreciate surgery input and recommendation Appreciate GI input and recommendation Has been going through preparation for possible colonoscopy in the morning Has been having bowel movement since last evening Status post colonoscopy-minimal chronic obstruction at the diverticular site Advised return to her primary care provider CAD hx of stent 2018 on plavix, statin, coreg hold tomorrow a.m. plavix for now until seen by GI resume as soon as able-after colonoscopy Denies any cardiac symptom HTN bp significantly elevated in ED, likely 2/2 to pain, missing meds continue amlodipine and coreg give labetalol 5mg IV x 1 now and amlodipine 10mg x 1 will monitor on tele due to elevated BP Remains a stable Diet controlled T2DM obtain a1c in am accuchecks ac/hs will not place on coverage Post herpetic neuralgia continue lyrica, prn ice Bipolar d/o Depression continue wellbutrin Dispo: med tele, likely to remain admitted 1-2 days FULL CODE PCP: Josh Cali - from out of area, will consult HIM to obtain records Likely discharge this afternoon Admission and Anticipated Discharge Date Admission Date: October 03, 2021 Subjective 10/04/2021 The patient was seen and examined in medical telemetry unit She complains to have abdominal discomfort with nausea and vomiting Feels a little bit better compared with yesterday 10/05/2021 The patient was seen and examined in medical telemetry unit She has had bowel movement yesterday and also this morning Denies any abdominal discomfort She is a status post colonoscopy without any significant findings She might be going home this afternoon Review of Systems Review of Systems: All systems reviewed and are unremarkable except as noted below Gastrointestinal: Minimal abdominal distention and discomfort Physical Exam Physical Exam: Lying in bed with acute distress secondary to nausea Constitutional: well developed, well nourished, + ill appearing and + obese Eyes: PERRL, conjunctivae normal, anicteric sclerae ENMT: external ear and nose normal, oropharynx normal Neck: trachea midline, no thyromegaly Respiratory: no respiratory distress Auscultation: lungs clear to auscultation bilaterally Cardiovascular: Rate/Rhythm: regular rate, regular rhythm and + bradycardic Heart Sounds: normal S1 and normal S2; no murmur Extremities: + edema (Trace edema bilaterally) Gastrointestinal (Abdomen): Inspection/Auscultation: + abdomen distended and normal bowel sounds Percussion/Palpation: abdomen soft; abdomen nontender Neurologic: Alert, awake and oriented x3 Psychiatric: A+Ox3, euthymic affect Lymphatic: no cervical or axillary lymphadenopathy Results & Data Results & Data ([facility]) Vital Signs (Past 12 Hours) Vital Signs Temp Pulse Resp BP Pulse Ox 10/05/21 15:33 36.6 C 55 L 16 141/62 H 94 10/05/21 14:34 60 16 139/59 L 93 10/05/21 14:21 55 L 16 111/50 L 93 10/05/21 14:01 58 L 16 102/48 L 93 10/05/21 12:24 36.3 C L 55 L 20 143/59 H 97 10/05/21 11:07 36.6 C 53 L 16 145/70 H 94 10/05/21 07:00 36.6 C 61 18 144/71 H 91 Medications Administered Current Inpatient Medications Amlodipine Besylate (Amlodipine Besylate 5 Mg Tab) 10 mg PO DAILY RONALD Stop: 11/03/21 08:59 Last Admin: 10/05/21 08:13 Dose: 10 mg Documented by: Atorvastatin Calcium (Atorvastatin 40 Mg Tab) 40 mg PO DAILY RONALD Stop: 11/03/21 08:59 Last Admin: 10/05/21 08:13 Dose: 40 mg Documented by: Bupropion HCl (Bupropion Sr 150 Mg Tabcr) 150 mg PO BID RONALD Stop: 11/02/21 20:59 Last Admin: 10/05/21 08:14 Dose: 150 mg Documented by: Carvedilol (Carvedilol 25 Mg Tab) 25 mg PO BID RONALD Stop: 11/02/21 20:59 Last Admin: 10/05/21 08:14 Dose: 25 mg Documented by: Dextrose (Dextrose 50% 50 Ml Syringe) 25 - 50 ml IV UD PRN; Protocol PRN Reason: Hypoglycemia Protocol Stop: 11/02/21 16:17 Glucagon (Glucagon For Inj 1 Mg Vial) 1 mg SQ UD PRN; Protocol PRN Reason: Hypoglycemia Protocol Stop: 11/02/21 16:17 Glucose (Glucose 10 Tabs/Tube) 4 - 8 tabs PO UD PRN; Protocol PRN Reason: Hypoglycemia Protocol Stop: 11/02/21 16:17 Glucose (Glucose 40% Gel 15 Gm Tube) 15 - 30 gm PO UD PRN; Protocol PRN Reason: Hypoglycemia Protocol Stop: 11/02/21 16:17 Heparin Sodium (Porcine) (Heparin Sod 5,000 Unit/0.5 Ml Vial) 5,000 units SQ Q8 RONALD Stop: 11/02/21 16:17 Last Admin: 10/05/21 15:02 Dose: 5,000 units Documented by: Lactated Ringer's (Lr) 1,000 mls @ 100 mls/hr IV .Q10H RONALD Stop: 11/02/21 16:17 Last Infusion: 10/05/21 15:19 Dose: 0 mls/hr Documented by: Acetaminophen (Ofirmev) 1,000 mg in 100 mls @ 400 mls/hr IV Q8H PRN PRN Reason: moderate pain Stop: 10/06/21 16:17 Ciprofloxacin (Cipro / D5w) 400 mg in 200 mls @ 100 mls/hr IV Q12H RONALD; Protocol Stop: 10/13/21 16:59 Last Infusion: 10/05/21 15:19 Dose: 0 mls/hr Documented by: Metronidazole (Metronidazole 500 Mg Tab) 500 mg PO TID RONALD Stop: 10/13/21 20:59 Last Admin: 10/05/21 15:02 Dose: 500 mg Documented by: Miscellaneous (Carbohydrates For Hypoglycemia ) 15 - 30 gm PO UD PRN PRN Reason: Hypoglycemia Protocol Stop: 11/02/21 16:17 Ondansetron HCl (Ondansetron Inj 2 Mg/Ml 2 Ml Vial) 4 mg IV Q6H RONALD Stop: 11/03/21 10:44 Last Admin: 10/05/21 10:51 Dose: 4 mg Documented by: Pantoprazole Sodium (Pantoprazole 40 Mg Tab) 40 mg PO DAILY [facility]; Protocol Stop: 11/03/21 08:59 Last Admin: 10/05/21 08:13 Dose: 40 mg Documented by: Pregabalin (Pregabalin 100 Mg Cap) 100 mg PO BID RONALD Stop: 11/02/21 20:59 Last Admin: 10/05/21 08:14 Dose: 100 mg Documented by: Tramadol HCl (Tramadol Hcl 50 Mg Tablet) 50 mg PO TID PRN PRN Reason: Pain Stop: 11/02/21 16:17 Last Admin: 10/03/21 20:10 Dose: 50 mg Documented by:
[2021-10-05] MEDS ORDERED: ACETAMINOPHEN 325 MG TAB PO STA (18:23)
[2021-10-05] MEDS: traMADol HCL 50 MG TABLET PO PRN (18:34)
[2021-10-05] MEDS ORDERED: CIPROFLOXACIN 500 MG TAB PO SCH (21:00)
[2021-10-05] MEDS ORDERED: metroNIDAZOLE 500 MG TAB PO SCH (21:00)
--- NOTE | 2021-10-06 12:50 | Discharge Summary ---
Date of Service October 06, 2021 Admission HPI Per Admitting Provider This is a 80-year-old female who has significant past medical history of CAD with history of angioplasty in 2018, diet-controlled T2DM, chronic postherpetic neuralgia, HTN, depression, GERD, bipolar disorder who presents to ED secondary to nausea and abdominal pain x2 days. She is from [place], [place] and is in town visiting her daughter for the holiday. Yesterday she complained of being nauseated and unable to eat and drink much. She did have 1 episode of vomiting described as, "spit up." She also complains of intermittent lower abdominal discomfort, waxes and wanes, currently 5 out of 10, nothing makes better or worse, has never had in the past. Her last bowel movement was 4 days ago. Her last colonoscopy was 1 year ago. She reports a colonoscopy unremarkable and no prior history of abnormal colonoscopies. Of significance she does admit to being hospitalized in August out in [place] secondary to abdominal pain and diagnosed with C. difficile colitis. She was treated with Flagyl x22 days. In ED she remained hemodynamically stable although was significantly hypertensive. CT abdomen pelvis was obtained which revealed apparent focal narrowing of the proximal descending colon. The upstream colon is distended and fluid-filled, and the distal colon shows significant fecal retention. The appearance suggest a colonic obstruction, possibly at the level of the proximal descending colon. Although no obvious mass lesions identified, a mass lesion, focal inflammation or stricture differential considerations. Daughter is at bedside. She is extremely concerned due to mother's prior history and wishes patient to have her care out in [place] where, "they are familiar with her." Admission Exam Per Admitting Provider Physical Exam: Constitutional: WD/WN, vitals as above, NAD, sitting up in bed, pleasant, conversing easily, appears anxious, moving around frequently in bed, complaining of left-sided lower back pain due to postherpetic neuralgia Head: Normocephalic, Atraumatic Eyes: PERRL, conjunctivae normal, anicteric sclerae ENMT: external ear and nose normal, oropharynx normal dry mucous membranes Neck: trachea midline, no thyromegaly normal visual inspection Respiratory: normal respiratory effort, lungs clear to auscultation, no wheeze, rales, rhonchi. Normal insp/exp effort, no accessory muscle use Cardiovascular: RRR, no murmur, no edema Vessels: no JVD or carotid bruit Chest: normal inspection of chest Abdomen: normal bowel sounds, soft, nontender, no hepatosplenomegaly Musculoskeletal: no cyanosis or clubbing, extremities motor strength 5/5 Skin: no rashes, warm and dry normal turgor Neurologic: PERRL, EOMI, accommodation nl, no face palsy, no dysarthria CN's II-XI intact bilaterally and moves all extremities Psychiatric: A+Ox3, euthymic affect Lymphatic: no cervical or axillary lymphadenopathy : deferred Principal Diagnosis Mild narrowing of the colon in association with diverticular opening, stable CAD, hypertension, diet-controlled diabetes, depression Discharge Exam Lying in bed with acute distress secondary to nausea Constitutional well developed, well nourished, + ill appearing and + obese Eyes PERRL, conjunctivae normal, anicteric sclerae ENMT external ear and nose normal, oropharynx normal Neck trachea midline, no thyromegaly Respiratory no respiratory distress Auscultation: lungs clear to auscultation bilaterally Cardiovascular Rate/Rhythm: regular rate, regular rhythm and + bradycardic Heart Sounds: normal S1 and normal S2; no murmur Extremities: + edema (Trace edema bilaterally) Gastrointestinal (Abdomen) Inspection/Auscultation: + abdomen distended and normal bowel sounds Percussion/Palpation: abdomen soft; abdomen nontender Psychiatric A+Ox3, euthymic affect Lymphatic no cervical or axillary lymphadenopathy Discharge Data Allergies Allergy/AdvReac Type Severity Reaction Status Date / Time acetaminophen [From Percocet] Allergy Severe Hallucinati Unverified 10/03/21 10:46 ng aspirin [From Percodan] Allergy Severe Hallucinati Unverified 10/03/21 10:46 ng butorphanol [From Stadol] Allergy Severe Hallucinati Unverified 10/03/21 10:46 ng codeine Allergy Severe Vomiting Unverified 10/03/21 10:46 fluorouracil [From Efudex] Allergy Severe eating Unverified 10/03/21 10:46 away skin meperidine [From Demerol] Allergy Severe Hallucinati Unverified 10/03/21 10:46 ng oxycodone [From Percocet] Allergy Severe Hallucinati Unverified 10/03/21 10:46 ng Penicillins Allergy Severe Unknown Unverified 10/03/21 10:46 morphine Allergy Intermediate Vomiting Unverified 10/03/21 10:46 propoxyphene Allergy Mild Nausea Unverified 10/03/21 10:46 [From Darvocet-N] ticagrelor [From Brilinta] Allergy Mild Dizziness Unverified 10/03/21 10:46 lorazepam Allergy Agitated Unverified 10/03/21 10:46 prochlorperazine Allergy Agitated Unverified 10/03/21 10:46 [From Compazine] Sulfa (Sulfonamide Allergy Rash Unverified 10/03/21 10:46 Antibiotics) Consultations 10/03/21 12:09 ED Decision to Admit Stat 10/03/21 13:39 Consult General Surgery Routine 10/03/21 14:32 Consult Gastroenterology Routine 10/03/21 14:34 Consult Health Information Management Routine Procedures Performed Operation Date: 10/05/21 16:15 Actual Procedures p Colonoscopy - Abram Valencia Case, DO Ordered Studies 10/03/21 10:09 CT abd pelvis IV con only Stat Hospital Course (1) Colon obstruction: (2) Nausea: (3) CAD (coronary artery disease): (4) HTN (hypertension): (5) Diet-controlled diabetes mellitus: (6) Post herpetic neuralgia: (7) Bipolar disorder: This is a 80-year-old female who has significant past medical history of CAD with history of angioplasty in 2018, diet-controlled T2DM, chronic postherpetic neuralgia, HTN, depression, GERD, bipolar disorder who presents to ED secondary to nausea and abdominal pain x2 days. CT a/p: here is an apparent focal narrowing of the proximal descending colon. The upstream colon is distended and fluid-filled, and the distal colon shows significant fecal retention. The appearance suggests a colonic obstruction, possibly at the level of the proximal descending colon. Although no obvious mass lesion is identified, a mass lesion, focal inflammation, or stricture are differential considerations. This focus of narrowing could also potentially be related to peristalsis, and proximal colonic dilatation could be related to distal fecal impaction. Follow-up with colonoscopy is recommended for further evaluation. WBC 13k, no signs of sirs/sepsis Colon Obstruction consult surgery - appreciate their recommendations clear liquid diet for now, NPO after midnight in event pt needs procedure consult gastroenterology to determine if they feel flex sig warranted vs enemas IV cipro and oral flagyl due to concern for possible stercoral coliits last c scope - 1 year ago per pt w/o abd finding IVF LR @ 100cc/hr Appreciate surgery input and recommendation Appreciate GI input and recommendation Has been going through preparation for possible colonoscopy in the morning Has been having bowel movement since last evening Status post colonoscopy-minimal chronic obstruction at the diverticular site Advised return to her primary care provider CAD hx of stent 2018 on plavix, statin, coreg hold tomorrow a.m. plavix for now until seen by GI resume as soon as able-after colonoscopy Denies any cardiac symptom HTN bp significantly elevated in ED, likely 2/2 to pain, missing meds continue amlodipine and coreg give labetalol 5mg IV x 1 now and amlodipine 10mg x 1 will monitor on tele due to elevated BP Remains a stable Diet controlled T2DM obtain a1c in am accuchecks ac/hs will not place on coverage Post herpetic neuralgia continue lyrica, prn ice Bipolar d/o Depression continue wellbutrin Dispo: med tele, likely to remain admitted 1-2 days FULL CODE PCP: Josh Cali - from out of area, will consult HIM to obtain records Likely discharge this afternoon Total Time Total Time Spent Total Time Spent (In Minutes): 35 minutes Discharge Plan Discharge Items Patient Disposition: Home - Self-Care Reason For Visit: LARGE BOWEL OBSTRUCTION Discharge Diagnosis: Mild narrowing of the colon in association with diverticular opening, stable CAD, hypertension, diet-controlled diabetes, depression Condition on Discharge: Fair Activity: Resume your previous activity Non-emergency contact: Primary Care Provider Call non-emergency contact if: you have any medication questions and your symptoms worsen Follow-up/Referrals: Josh Cali PA-C [Primary Care Provider] - (Please make an appointment with your primary care provider within 7 days) Diet: Carb Consistent or DM2 Addtl Attending Provider Instructions: Please take precautions to avoid falls Try to use laxatives regularly to avoid constipation Drink reasonable amount of fluid Finish the course of antibiotic Pending Studies at Discharge: No Stand-Alone Forms: [employer], Smoking Cessation Medications and DC Order Prescriptions: New ciprofloxacin HCl 500 mg Tablet 500 mg PO BID Qty: 14 RF: 0 metronidazole 500 mg Tablet 500 mg PO TID 7 Days Qty: 21 RF: 0 Lactinex 1 million cell tablet,chewable 1 tab PO BID Qty: 30 RF: 0 Continued atorvastatin 40 mg Tablet 40 mg PO DAILY RF: 0 bupropion HCl 150 mg Tablet Sustained-Release 12 Hr 150 mg PO BID RF: 0 clopidogrel 75 mg Tablet 75 mg PO DAILY RF: 0 psyllium husk [Metamucil] 0.52 gram Capsule 0.52 g PO DAILY RF: 0 pregabalin [Lyrica] 100 mg Capsule 100 mg PO BID RF: 0 carvedilol 25 mg tablet 25 mg PO BID RF: 0 ondansetron HCl 8 mg tablet 8 mg PO TID PRN (Reason: Nausea And Vomiting) RF: 0 tramadol 50 mg tablet 50 mg PO TID PRN (Reason: Pain) RF: 0 amlodipine 10 mg tablet 10 mg PO DAILY RF: 0 lansoprazole 30 mg capsule,delayed release(DR/EC) 30 mg PO DAILY RF: 0 Discharge Orders: Discharge Order (Routine); Ordered 10/05/21 Ordered By: Ralph Joseph/Other Patient Handouts: A1C, Managing Type 2 Diabetes Admission Data Admit Date/Time: 10/03/21 12:52 Attending Provider: Ralph Kc Admit Provider: Ralph Kc Primary Care Provider: Josh Cali Other Providers: Govind Mancia ; Abram Márquez ; Ralph Kc Other Interventions: Discharge Summary Assessment (RN) Last Done: 10/05/21 18:39
== END 2021-10-05 19:41 | disposition home or self-care (01) ==
LOC: ED 09:42 → INTOOBSV 12:52 → EDINP 12:52 → 2N 19:32